=== PATIENT | female | born 1955 | race Hispanic/Latino ===

== ENCOUNTER 2018-12-17 22:05 | Observation (INO) | payer MEDICARE ==
[2018-12-17] MEDS ORDERED: Nitroglycerin 2% Ointment 1 INCH/1 GM Packet ONE (22:47)
[2018-12-17 23:58] LABS: Troponin I 0.015 ng/mL (< 0.028)
[2018-12-18] MEDS ORDERED: Bisacodyl 5 MG TAB PO PRN (00:05)
[2018-12-18] MEDS ORDERED: HumaLOG 300 UNITS/3 ML VIAL SC PRN (00:05)
[2018-12-18] MEDS ORDERED: Dextrose 50% Abboject 50 ML SYRINGE SLOW IVP PRN (00:05)
[2018-12-18] MEDS ORDERED: Dextrose 5% in Water 1,000 ML IV PRN (00:05)
[2018-12-18] MEDS ORDERED: Senokot S 8.6-50 MG TAB PO PRN (00:05)
[2018-12-18 01:19] VITALS: BMI 25.4
[2018-12-18 02:29] LABS: #Basophils 0.1 thou/uL (0.0-0.2); #Eosinphils 0.1 thou/uL (0.0-0.7); #Lymphocytes 2.9 thou/uL (1.20-3.40); #Monocytes 0.9 thou/uL (0.11-0.59); #Neutrophils 4.9 thou/uL (1.40-6.50); %Basophils 0.8 % (0.0-1.0); %Eosinophils 1.2 % (0.0-10.0); %Lymphocytes 32.6 % (21.0-51.0); %Monocytes 9.6 % (0.0-10.0); %Neutrophils 55.7 % (42.0-75.0); Hemoglobin 10.6 g/dL (12.0-16.0); Mean Corpuscular HGB CONC 34.2 g/dL (32.0-36.0); Mean Corpuscular Hemoglobin 30.1 pg (27.0-31.0); Mean Platelet Volume 7.5 fL (7.4-10.4); Platelet Count 242 thou/uL (130-400); RBC Distribution Width 12.4 % (11.5-14.5); Red Blood Cell (RBC) Count 3.52 mill/uL (4.20-5.40); White Blood Cell (WBC) Count 8.9 thou/uL (4.8-10.8)
[2018-12-18 02:50] LABS: Anion Gap 11 mmol/L (10-20); BUN (Urea Nitrogen) 26 mg/dL (9.8-20.1); Calc. Creatinine Clearance 36 mL/min (70-130); Calcium 9.8 mg/dL (7.8-10.44); Carbon Dioxide 21 mmol/L (23-31); Chloride 108 mmol/L (98-107); Estimated GFR-MDRD 30; Glucose 123 mg/dL (80-115); Potassium 4.1 mmol/L (3.5-5.1); Sodium 136 mmol/L (136-145)
[2018-12-18 02:51] LABS: Troponin I Less than 0.010 ng/mL (< 0.028)
[2018-12-18] MEDS: Acetaminophen 325 MG TAB PO PRN ×2 (05:13→11:51)
--- NOTE | 2018-12-18 08:07 | RAD ---
XR Shoulder Rt 3 View STANDARD: 12/18/2018 12:04 AM CLINICAL INDICATION: Pain COMPARISON: None. FINDINGS: Fracture:No fracture. Arthropathy:Moderate arthropathy. Incidental findings:None of significance. IMPRESSION: 1. No acute osseous abnormality. 2. Moderate osteoarthritis.
--- NOTE | 2018-12-18 08:46 | HP ---
CHIEF COMPLAINT: Right shoulder pain/chest pain. HISTORY OF PRESENT ILLNESS: The patient is a 63-year-old female with past medical history of CAD status post 2 stents put in 2017. She comes in with complaints of right shoulder pain/chest pain. The patient stated that she was sitting, watching TV today when she started having significant amount of right shoulder pain, which was sharp in nature and radiated to her midsternal area. The patient denies any shortness of breath, any nausea, vomiting, or diaphoresis. The patient stated that she tried different medications to relieve her chest pain, which did not improve, so she came into the ER for further evaluation. The patient further states that she was in rehab about a week ago at [facility] for rehabilitation since she had suffered a fall, which appeared to be most likely mechanical and was in rehab. However, the patient stated that she was in wheelchair bound and they did not really walk her or ambulate her. She also states that she has been using a walker at home and felt that she was putting more pressure on her upper extremity, which she has normally not used to. The patient has a history of an asoyg-osi-cbdx amputation of her right leg for infection and she does have a prosthesis. She also, on the left leg, had a work injury and has had extensive surgery on that leg, so she at baseline has very limited mobility and normally at her baseline, she normally walks with a cane. However, since her fall, which was about a few weeks ago, she has been using a walker. The patient currently states that she does have pain when she takes a deep breath and her pain is sharp in nature. Her last pain that she had when she had her stents, she did not have any pain, she did have shortness of breath. PAST MEDICAL HISTORY: She has had a history of CAD. In 2017, she had 2 stents placed in. She also has a history of diabetes, hyperlipidemia, and hypertension. PAST SURGICAL HISTORY: She has had a left shoulder surgery, skin graft to her left lower extremity and her left wrist. She has had an pobol-phk-hugn right leg amputation. She has also had 2 cardiac stents. SOCIAL HISTORY: She denies any alcohol use, drug use, or smoking history. She lives at home alone. She is a full code. REVIEW OF SYSTEMS: All negative except for the ones mentioned above in the HPI. ALLERGIES: SHE IS ALLERGIC TO CIPRO. MEDICATION: She does not recall her medication list. However, she is currently on NovoLog and Levemir. PHYSICAL EXAMINATION: VITAL SIGNS: Temperature of 98.8, pulse of 72, 16, 98% on room air, pain of 6 to her right shoulder, 164/80. GENERAL: She is awake, alert, and oriented x3. She does not appear in distress. HEENT: Normocephalic, atraumatic. No lymphadenopathy noted. Pupils are equal and reactive to light. CV: S1 and S2 present. No murmurs, rubs, or gallops. LUNGS: Clear to auscultation. No rhonchi or wheezes noted. ABDOMEN: Soft and nontender. Bowel sounds present x2. NEUROVASCULAR: No focal deficits noted. She does have a stump and a prosthesis on her right leg. The left leg, she does have significant scarring, however, no deficits. She is able to move all 4 extremities. MUSCULAR: Her right shoulder, she does have some pain upon palpation and some pain upon moving of her right shoulder. SKIN: She does have some old scars noted to her left lower extremity, otherwise no open sores were noted. LABORATORY RESULTS: WBCs of 8.9, hemoglobin of 10.6, hematocrit of 31.0, platelets of 242. Her D-dimer was 3.73. Chemistry; sodium of 132, potassium of 4.1, BUN of 26, creatinine of 1.69. Troponin x2 were negative. She also had a chest x-ray and a shoulder x-ray. Chest x-ray indicated no acute abnormalities. She does have an old left humeral fracture. Her shoulder x-rays which were ordered are still pending results. ASSESSMENT AND PLAN: The patient is a very pleasant 63-year-old female who presents to the hospital with complaints of right shoulder pain, radiating to her chest. 1. Atypical chest pain. This could be secondary to possible pulmonary embolism versus cardiac in nature. The patient's troponins x2 were negative. EKG had no significant changes. Her pain is sharp in nature. Her D-dimer was elevated. However, given the fact that she had elevated creatinine and her low clearance, she needed a V/Q scan and was unable to get a CTA. The patient is currently on a renal-based dose Lovenox and she will get a V/Q scan this morning. The patient, according to her , immobile and has been wheelchair bound for the past 1 week due to her fall that she had and also continues to have limited mobility due to her generalized weakness, which could predispose her to a blood clot. 2. Diabetes. We will put the patient on sliding scale insulin and continue her home medications. 3. Chronic kidney disease, unknown patient's baseline. She has really never been here before. She does not recall having any kidney issues. We will continue to monitor. 4. Mild anemia, appears to be normocytic. We will continue to monitor. 5. Deep vein thrombosis prophylaxis. The patient is already on Lovenox. Of note, may consider getting a stress test if needed. However, I will like to rule out a pulmonary embolism by doing a V/Q scan first before I stress this lady. Her mechanical drafter is in [place]. She does not recall any recent stress tests. All her workup was done about 2 years ago. Job ID: [id number]
[2018-12-18] MEDS ORDERED: Enoxaparin Sodium 80 MG/0.8 ML SYRINGE SC SCH (09:00)
[2018-12-18] MEDS ORDERED: Enoxaparin Sodium 40 MG/0.4 ML SYRINGE SC SCH (09:00)
[2018-12-18 11:55] VITALS: BP 156/72; TEMP 97.9
--- NOTE | 2018-12-18 12:56 | NM ---
VQ SCAN: HISTORY: Chest pain. TECHNIQUE: Ventilation perfusion scan performed using 14.4 mCi Xenon-133 by inhalation for the ventilation study followed by the intravenous administration of 5.8 mCi technetium-99m MAA for the perfusion scan. FINDINGS: Correlation is made with chest radiograph from the previous day. There is homogeneous tracer distribution in the lungs on ventilation perfusion scans without defects. Washout phase of the ventilation scan was normal. IMPRESSION: Normal exam. POS: TPC
== END 2018-12-18 14:46 | disposition home or self-care (01) ==
LOC: ERS 22:05 → 2SW 12-18 00:19
PROVIDERS: ADMIT Internal Medicine; ATTEND Internal Medicine
DX: R07.89 Other chest pain (principal); I16.0 Hypertensive urgency; I12.9 Hypertensive chronic kidney disease with stage 1 through stage 4 chronic kidney disease, or unspecified chronic kidney disease; E11.22 Type 2 diabetes mellitus with diabetic chronic kidney disease; N18.9 Chronic kidney disease, unspecified; D63.1 Anemia in chronic kidney disease; M19.011 Primary osteoarthritis, right shoulder; I25.10 Atherosclerotic heart disease of native coronary artery without angina pectoris; E78.5 Hyperlipidemia, unspecified; Z95.5 Presence of coronary angioplasty implant and graft; Z89.611 Acquired absence of right leg above knee; Z88.1 Allergy status to other antibiotic agents; Z79.4 Long term (current) use of insulin; Z79.1 Long term (current) use of non-steroidal anti-inflammatories (NSAID); Z79.899 Other long term (current) drug therapy
CPT/HCPCS: 73030; 78582; 80048; 82962; 84484 ×2; 85025; 96372; 97139 ×2; 99285; A9540; A9558; G0378; 36415; 36416; J1650

== ENCOUNTER 2019-08-27 08:56 | Inpatient (IN) | payer MEDICARE ==
--- NOTE | 2019-08-27 09:43 | RAD ---
CHEST 1 VIEW: Date: 08/27/2019 HISTORY: Dyspnea. COMPARISON: 12/17/2018. FINDINGS: Bilateral vascular congestion with some interstitial and alveolar opacity changes in the bases and sm all bilateral pleural effusions. No significant cardiomegaly. No confluent lobar pneumonia. IMPRESSION: Evidence for bilateral vascular congestion and probably some bibasilar interstitial and alveolar opac ity changes with bilateral small pleural effusions. These findings are new from the prior study. POS: TPC
[2019-08-27 10:03] LABS: ALT (SGPT) 10 U/L (8-55); AST (SGOT) 14 U/L (5-34); Alkaline Phosphatase 129 U/L (40-110); BUN (Urea Nitrogen) 70 mg/dL (9.8-20.1); Bilirubin, Total 0.3 mg/dL (0.2-1.2); Calc. Creatinine Clearance 0 mL/min (70-130); Calcium 7.4 mg/dL (7.8-10.44); Carbon Dioxide 14 mmol/L (23-31); Chloride 110 mmol/L (98-107); Estimated GFR-MDRD 5; Glucose 114 mg/dL (80-115); Potassium 5.2 mmol/L (3.5-5.1); Sodium 137 mmol/L (136-145)
[2019-08-27 10:07] LABS: #Basophils 0.1 thou/uL (0.0-0.2); #Eosinphils 0.1 thou/uL (0.0-0.7); #Lymphocytes 1.4 thou/uL (1.20-3.40); #Monocytes 0.7 thou/uL (0.11-0.59); %Basophils 0.7 % (0.0-1.0); %Eosinophils 0.7 % (0.0-10.0); %Lymphocytes 17.2 % (21.0-51.0); %Monocytes 8.8 % (0.0-10.0); %Neutrophils 72.7 % (42.0-75.0); Hemoglobin 9.1 g/dL (12.0-16.0); Mean Corpuscular HGB CONC 33.4 g/dL (32.0-36.0); Mean Corpuscular Hemoglobin 29.9 pg (27.0-31.0); Mean Corpuscular Volume 89.5 fL (78.0-98.0); Mean Platelet Volume 7.6 fL (7.4-10.4); Platelet Count 276 thou/uL (130-400); RBC Distribution Width 13.5 % (11.5-14.5); Red Blood Cell (RBC) Count 3.06 mill/uL (4.20-5.40); White Blood Cell (WBC) Count 8.2 thou/uL (4.8-10.8)
[2019-08-27 10:26] LABS: CKMB 5.4 ng/mL (0-6.6)
[2019-08-27 12:18] LABS: Anion Gap 18 mmol/L (10-20)
[2019-08-27] MEDS ORDERED: Furosemide 40 MG/4 ML VIAL ONE (12:22)
[2019-08-27] MEDS ORDERED: Calcium Carbonate 500 MG ChewTAB PO PRN (12:58)
[2019-08-27] MEDS ORDERED: Dextrose 50% Abboject 50 ML SYRINGE SLOW IVP PRN (13:01)
[2019-08-27] MEDS ORDERED: Dextrose 5% in Water 1,000 ML IV PRN (13:01)
[2019-08-27] MEDS ORDERED: Insulin Regular 300 UNITS/3 ML VIAL SC PRN ×2 (13:01)
--- NOTE | 2019-08-27 14:24 | ULT ---
BILATERAL RENAL ULTRASOUND: Date: 08/27/2019 HISTORY: Acute kidney insufficiency. FINDINGS: Right kidney measures 10.0 cm in length. Left kidney measures 11.0 cm in length. Both kidneys show increased cortical echogenicity consistent with chronic renal disease. No hydroneph rosis or mass lesion identified. The urinary bladder is distended and unremarkable. IMPRESSION: Both kidneys show increased cortical echogenicity consistent with chronic renal disease. No hydroneph rosis. POS: C
[2019-08-27 14:48] LABS: Troponin I 0.043 ng/mL (< 0.028)
[2019-08-27] MEDS ORDERED: Sodium Bicarbonate Tab 325 MG TAB PO SCH (15:30)
--- NOTE | 2019-08-27 18:20 | HP ---
PRIMARY CARE: Dr. Yolanda Stauffer. PRIMARY COATINGS INSPECTOR: Out of [facility]. CHIEF COMPLAINT: Shortness of breath. HISTORY OF PRESENT ILLNESS: The patient is a 64-year-old female with congestive heart failure, coronary artery disease, diabetes mellitus type 2, hypertension, and hyperlipidemia, presented to the emergency room with shortness of breath. Over the last one week, the patient has gradual worsening of shortness of breath that progressively got worse over the last 24 hours. It started with a flu-like symptom last week. She tried xazl-mhd-coisxis medications including loratadine without much relief. She was evaluated by a PCP and was started on oral clindamycin along with ipratropium nasal spray. Her flu symptoms gradually improved. However, her shortness of breath progressively got worse. She gets short of breath on minimal exertion. She also had some orthopnea. She also notices leg swelling. No paroxysmal nocturnal dyspnea reported. She had cough, which was productive of thick whitish phlegm. No fever, chills, chest pain, palpitations, or syncope reported. She denies any sick contacts. In the emergency room, her workup was consistent with acute kidney injury with creatinine of 8.8. Creatinine last year was 1.69. She denies any recent blood work. PAST MEDICAL HISTORY: 1. Coronary artery disease, status post stent placement. 2. Hypertension. 3. Diabetes mellitus type 2. 4. CKD stage 4. PAST SURGICAL HISTORY: 1. Left shoulder surgery. 2. Skin graft to left lower extremity and left wrist. 3. 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 ALLERGIES: THE PATIENT IS ALLERGIC TO CIPROFLOXACIN. CURRENT HOME MEDICATIONS: The patient is unable to recall any of her home medications. SOCIAL HISTORY: The patient currently lives at home alone. She is full code, makes her own decision with the help of her daughter. No smoking, alcohol, or drug use. FAMILY HISTORY: Negative for premature coronary artery disease. REVIEW OF SYSTEMS: All other review of systems was reviewed and was found negative. PHYSICAL EXAMINATION: VITAL SIGNS: Showed temperature 98, respiration of 19, pulse rate of 99, blood pressure of 182/87, O2 saturation of 99% on room air. GENERAL: A 64-year-old female, in mild respiratory distress, able to complete short sentences. HEENT: Head, atraumatic and normocephalic. Sclerae anicteric. Moist mucous membranes. No oral lesion. NECK: Supple. JVD elevated. No carotid bruit. LUNGS: Showed accessory muscle use along with scattered rhonchi with a few rales at bases. No wheezing appreciated. HEART: S1 and S2 present. Regular. No rubs or gallops. No heaves or pulsation. ABDOMEN: Soft, nontender. Bowel sounds present. No rebound or guarding. EXTREMITIES: There is 1+ edema in the left flank. The patient has a bony amputation in the right lower extremity. SKIN: Warm and dry. LYMPH NODES: No palpable lymph nodes in the neck. PERIPHERAL VASCULAR: Radial pulses palpable bilaterally. MUSCULOSKELETAL: No joint swelling or tenderness. PSYCHIATRY: Alert, awake, and oriented x3. LABORATORY FINDINGS: Creatinine 8.8 with BUN 70, potassium 5.2, chloride 110, bicarb 14. CBC showed WBC 8.2 with hemoglobin 9.1. IMAGING STUDIES: Chest x-ray by my review showed pulmonary vascular congestion. EKG by my review showed sinus rhythm with incomplete right bundle-branch block and left axis deviation. There were nonspecific ST-T wave changes. IMPRESSION: 1. Acute on chronic congestive heart failure exacerbation, suspected systolic. 2. Acute kidney injury on chronic kidney disease, stage 4. 3. Hyperkalemia. 4. Metabolic acidosis. 5. Type 2 myocardial infarction. 6. Anemia, suspected due to renal insufficiency. 7. Diabetes mellitus, type 2. 8. Hypertension. 9. Hyperlipidemia. PLAN: 1. The patient's renal function worsening is probably secondary to cardiorenal syndrome. It is unclear what medications the patient takes. Nephrology will be consulted. She has been started on IV diuretics per Nephrology. We will start her on sodium bicarbonate for correction of metabolic acidosis. We will add fluid restriction, start low-dose aspirin. Verify home medications. P.r.n. nebulizer treatment. Cardiac Rehab consultation. 2. Recheck labs in a.m. Urinalysis is pending at this time. We will check iron profile due to significant anemia. 3. The patient understands the above plan of care. Job ID: [id number]
[2019-08-27] MEDS ORDERED: Furosemide 40 MG/4 ML VIAL SLOW IVP SCH ×2 (18:45→21:00)
[2019-08-27] MEDS: Senokot S 8.6-50 MG TAB PO SCH (20:28)
[2019-08-27] MEDS: Sodium Bicarbonate Tab 325 MG TAB PO SCH (20:29)
[2019-08-27] MEDS: Famotidine 20 MG TAB PO SCH (20:29)
[2019-08-27] MEDS: Heparin 5,000 UNITS/ML VIAL SC SCH (20:29)
[2019-08-27] MEDS ORDERED: Morphine 2 MG/ML SYRINGE SLOW IVP SCH (21:00)
[2019-08-27] MEDS: Cepastat Lozenges 1 LOZ PO PRN ×2 (21:13→23:39)
[2019-08-27] MEDS: Aspirin 81 mg Enteric Coated Tablet PO SCH (21:13)
[2019-08-27] MEDS ORDERED: Sodium Bicarb 50 MEQ/50 ML VIAL IVP SCH (22:00)
[2019-08-27 22:22] LABS: Actual Bicarbonate (HCO3a) 11.9 mEq/L (22-28); Base Excess (BEa) -11.1 mEq/L (-2.0 to +3.0); Calcium, Ionized 1.08 mmol/L (1.12-1.30); Carboxyhemoglobin (COHb) 0.9 gm% (0.0-3.0); Hemoglobin (Hb) 13.8 g/dL (12.0-16.0); O2 Tension (PaO2) 91.1 mmHg (> 80.0); Potassium - ABG Lab 4.96 mmol/L (3.70-5.30); pH, Arterial 7.37 (7.35-7.45)
[2019-08-27 22:23] LABS: Puncture Site RRA
[2019-08-27] MEDS: Sodium Bicarbonate 150 MEQ in Dextrose 5% in Water 1,000 ML IV SCH (22:32)
[2019-08-28 05:11] LABS: #Lymphocytes 1.1 thou/uL (1.20-3.40); #Monocytes 0.5 thou/uL (0.11-0.59); #Neutrophils 4.4 thou/uL (1.40-6.50); %Basophils 0.6 % (0.0-1.0); %Eosinophils 0.8 % (0.0-10.0); %Lymphocytes 18.3 % (21.0-51.0); %Monocytes 7.6 % (0.0-10.0); %Neutrophils 72.7 % (42.0-75.0); Hemoglobin 9.6 g/dL (12.0-16.0); Mean Corpuscular HGB CONC 34.5 g/dL (32.0-36.0); Mean Corpuscular Hemoglobin 30.8 pg (27.0-31.0); Mean Corpuscular Volume 89.1 fL (78.0-98.0); Mean Platelet Volume 7.6 fL (7.4-10.4); Platelet Count 210 thou/uL (130-400); RBC Distribution Width 13.3 % (11.5-14.5); Red Blood Cell (RBC) Count 3.13 mill/uL (4.20-5.40); White Blood Cell (WBC) Count 6.1 thou/uL (4.8-10.8)
[2019-08-28 05:11] LABS: Bacteria/HPF None Seen HPF (None Seen); Bilirubin Negative (Negative); Blood, Urine Trace (Negative); Clarity Clear (Clear); Glucose, Urine (Dipstick) 300 mg/dL (Negative); Leukocyte Negative Leu/uL (Negative); Nitrite Negative (Negative); Protein, Urine (Dipstick) 600 mg/dL (Neg-Trace); RBC/HPF 0-3 HPF (0-3); Urobilinogen Normal mg/dL (Less than 2); WBC/HPF 0-3 HPF (0-3)
[2019-08-28 05:15] LABS: INR-International Normal Ratio 1.1; PTT 34.4 SEC (22.9-36.1); Prothrombin Time 14.6 SEC (12.0-14.7)
[2019-08-28 05:29] LABS: Iron 19 ug/dL (50-170); Iron Binding Capacity, Total 174 mcg/dL (265-497)
[2019-08-28] MEDS: Cepastat Lozenges 1 LOZ PO PRN ×2 (05:29→08:37)
[2019-08-28] MEDS: Furosemide 40 MG/4 ML VIAL SLOW IVP SCH ×2 (05:29→13:16)
[2019-08-28 05:30] LABS: ALT (SGPT) 8 U/L (8-55); AST (SGOT) 11 U/L (5-34); Albumin 2.7 g/dL (3.4-4.8); Alkaline Phosphatase 96 U/L (40-110); Anion Gap 19 mmol/L (10-20); BUN (Urea Nitrogen) 72 mg/dL (9.8-20.1); Bilirubin, Total 0.3 mg/dL (0.2-1.2); Calc. Creatinine Clearance 7 mL/min (70-130); Calcium 7.7 mg/dL (7.8-10.44); Carbon Dioxide 15 mmol/L (23-31); Chloride 105 mmol/L (98-107); Estimated GFR-MDRD 4; Globulin 3.3 g/dL (2.4-3.5); Glucose 192 mg/dL (80-115); Potassium 4.6 mmol/L (3.5-5.1); Sodium 134 mmol/L (136-145)
[2019-08-28 05:31] LABS: Iron 19 ug/dL (50-170); Iron Binding Capacity, Total 178 mcg/dL (265-497); Phosphorus 8.7 mg/dL (2.3-4.7)
[2019-08-28] MEDS: Sodium Bicarbonate Tab 325 MG TAB PO SCH (08:36)
[2019-08-28] MEDS: Loratadine 10 MG TAB PO SCH (08:36)
[2019-08-28] MEDS: Senokot S 8.6-50 MG TAB PO SCH ×2 (08:36→20:11)
[2019-08-28] MEDS: Heparin 5,000 UNITS/ML VIAL SC SCH ×2 (08:36→20:11)
[2019-08-28] MEDS ORDERED: Aspirin 81 mg Enteric Coated Tablet PO SCH (09:00)
[2019-08-28] MEDS ORDERED: Heparin 10,000 UNITS/ 10 ML VIAL ONE (09:55)
--- NOTE | 2019-08-28 10:08 | PDOC.HOSPP ---
- Subjective Encounter Date: 08/28/19 Encounter Time: 10:05 Subjective: Patient seen and examined for MAY/CHF. Nausea. SOB improving. No new complaints. No overnight events. Coughing up clear phlegm. Some throat pain. Slept well last night. - Objective Vital Signs & Weight: Vital Signs (12 hours) Temp Pulse Resp BP BP Pulse Ox 08/28/19 08:33 99.8 F H 106 H 22 H 160/75 H 99 08/28/19 06:50 101 H 20 100 08/28/19 03:39 98.7 F 110 H 22 H 150/77 H 97 08/27/19 23:24 98.5 F 113 H 16 160/74 H 97 08/27/19 22:50 109 H 22 H Weight Weight 166 lb 9.6 oz I&O: 08/27/19 08/28/19 08/29/19 06:59 06:59 06:59 Intake Total 905 Output Total 750 Balance 155 Result Diagrams: 08/28/19 04:57 08/28/19 04:57 Additional Labs: Accuchecks 08/28/19 08/27/19 08/27/19 05:21 20:12 17:21 POC Glucose 231 H 143 H 103 Radiology Reviewed by me: Yes (CXR - pulm congestion) EKG Reviewed by me: Yes (Tele SR) Hospitalist ROS - Review of Systems Constitutional: reports: weakness. denies: fever, chills, sweats, malaise, other Gastrointestinal: reports: nausea. denies: vomiting, abdominal pain, diarrhea, constipation, melena, hematochezia, other - Medication Medications: Active Medications Generic Name Dose Route Start Last Admin Trade Name Freq PRN Reason Stop Dose Admin Albuterol/Ipratropium 3 ml 08/27/19 18:30 08/28/19 06:50 Duoneb NEB 3 ml [id number] ROLAND Administration Aspirin 81 mg 08/27/19 21:00 08/27/19 21:13 Ecotrin PO 81 mg HS ROLAND Administration Famotidine 20 mg 08/27/19 21:00 08/27/19 20:29 Pepcid PO 20 mg QPM ROLAND Administration Furosemide 40 mg 08/28/19 06:00 08/28/19 05:29 Lasix SLOW IVP 40 mg 0600,1400 ROLAND Administration Heparin Sodium (Porcine) 5,000 units 08/27/19 21:00 08/28/19 08:36 Heparin SC 5,000 units BID ROLAND Administration Sodium Bicarbonate 150 meq/ 1,150 mls @ 100 mls/hr 08/27/19 22:00 08/27/19 22 :32 Dextrose/Water IV 1,150 mls .[id number] ROLAND Administration Loratadine 10 mg 08/28/19 09:00 08/28/19 08:36 Claritin PO 10 mg DAILY ROLAND Administration Senna/Docusate Sodium 1 tab 08/27/19 21:00 08/28/19 08:36 Senokot S PO 1 tab BID ROLAND Administration Sodium Bicarbonate 650 mg 08/27/19 21:00 08/28/19 08:36 Bicarbonate, Sodium PO 650 mg TID ROLAND Administration Throat Lozenges 1 iván 08/27/19 20:43 08/28/19 08:37 Cepastat Lozenges PO 1 iván Q2H PRN Administration Sore Throat - Exam General Appearance: ill appearing Neck: supple, no JVD Heart: RRR, no gallops, no rubs, normal peripheral pulses Respiratory: no wheezes, normal chest expansion, rales (few), rhonchi Gastrointestinal: soft, non-tender, non-distended, normal bowel sounds Extremities: no cyanosis, 1+ LE edema Neurological: no new deficit Psychiatric: normal affect, A&O x 3 Hosp A/P - Plan DVT proph w/heparin 1. Acute on chronic congestive heart failure exacerbation, suspected systolic. 2. Acute kidney injury on chronic kidney disease, stage 4. 3. Hyperkalemia - improving 4. Metabolic acidosis. 5. Type 2 myocardial infarction. 6. Anemia, suspected due to renal insufficiency. 7. Diabetes mellitus, type 2. 8. Hypertension. 9. Hyperlipidemia. PLAN: Started on bicarb drip per Nephro Will dc PO Bicarb Will add low dose Coreg PRN meds for HTN Add Lantus Change sliding scale to moderate CXR today to r/o Pneumonia Start empiric Atbx - Ceftriaxone/Doxycycline AM labs
[2019-08-28] MEDS ORDERED: hydrALAZINE 20 MG/ML VIAL SLOW IVP PRN (10:15)
[2019-08-28] MEDS ORDERED: cloNIDine 0.1 MG TAB PO PRN (10:15)
[2019-08-28] MEDS ORDERED: Ondansetron PF 4 MG/2 ML Vial IVP PRN (10:17)
[2019-08-28] MEDS ORDERED: Cepastat Lozenges 1 LOZ PO PRN (10:25)
[2019-08-28] MEDS ORDERED: Carvedilol 6.25 MG TAB PO SCH (10:30)
[2019-08-28] MEDS ORDERED: Insulin Glargine 15 UNITS in Pre-Filled Syringe 1 EACH SC SCH (10:30)
[2019-08-28] MEDS ORDERED: Doxycycline 100 MG CAP PO SCH (10:30)
[2019-08-28] MEDS: Insulin Regular 300 UNITS/3 ML VIAL SC PRN (11:07)
[2019-08-28] MEDS: cefTRIAXone\\ROCEPHIN 1 GM in Sodium Chloride 0.9% 100 ML IVPB SCH (11:08)
[2019-08-28] MEDS: Ondansetron ODT 4 MG TAB PO PRN (11:11)
[2019-08-28] MEDS: Acetaminophen 325 MG TAB PO PRN ×2 (11:11→19:00)
--- NOTE | 2019-08-28 11:36 | RAD ---
XR Chest Pa Lat STANDARD HISTORY: Shortness of breath. COMPARISON: 08/27/2019 exam. FINDINGS: Heart size and mediastinum are within normal limits. Blunting of both costophrenic angles a re noted and there are bibasilar lung changes seen. Overall findings appear fairly similar to the prior exam. IMPRESSION: Suggestion of bilateral small pleural effusions and bibasilar lung changes probably on th e basis of atelectasis.
[2019-08-28] MEDS: Sodium Bicarbonate 150 MEQ in Dextrose 5% in Water 1,000 ML IV SCH (11:55)
[2019-08-28 12:58] LABS: Creatinine, Urine 34.89 mg/dL (47-110)
--- NOTE | 2019-08-28 13:31 | PRG ---
DATE OF SERVICE: 08/28/2019 SUBJECTIVE: Patient was seen and examined at bedside and overnight events noted. Patient denies any shortness of breath or chest pain or palpitation. No history of nausea or vomiting or diarrhea or fever or chills or cramps. OBJECTIVE: GENERAL: This is a well-built female, in no acute distress. VITAL SIGNS: Temperature 99, pulse 107, respiratory rate 18, blood pressure 132/69. HEENT: Atraumatic, normocephalic. Oral mucosa is moist NECK: Supple. CARDIOVASCULAR: S1, S2 heard. Rate and rhythm regular. RESPIRATORY: Clear to auscultation. GASTROINTESTINAL: Abdomen is soft. MUSCULOSKELETAL: No tenderness. No edema. DERMATOLOGIC: No skin rash. NEUROLOGIC: Alert and awake and oriented X3. No focal neurologic deficits. Moving all the extremities. PSYCHIATRIC: Mood and affect normal. LABORATORY DATA: Potassium 4.6, sodium 134, bicarb is 15, BUN is 72, and creatinine is 8.9. ASSESSMENT AND PLAN: 1. Acute kidney injury on chronic kidney disease stage 5 with worsening renal labs. Plan is to start on dialysis. Family is agreeable. 2. Hyponatremia. 3. Acidosis. 4. Vitamin D deficiency. Started on vitamin D. 5. Anemia of chronic disease. 6. Renal ultrasound with chronicity. Avoid nephrotoxins. Plan is to start on dialysis. Appreciate help from Surgery for dialysis access placement. We will follow. Immunological labs are pending. Job ID: [id number]
[2019-08-28 13:58] LABS: HBSAg Index 0.21 S/CO (0-0.99); Hep B Core Total Ab Non-Reactive (NonReactive); Hep B Core Total Index 0.04 S/CO (0-0.79); Hep B Surf AB Non-Reactive (NonReactive); Hep B Surf Ag Non-Reactive S/CO (NonReactive); Hep C IgG Ab Non-Reactive (NonReactive); Hep C Index 0.05 S/CO (0-0.79)
--- NOTE | 2019-08-28 17:16 | OP ---
DATE OF PROCEDURE: 08/28/2019 PREOPERATIVE DIAGNOSIS: Acute renal failure. POSTOPERATIVE DIAGNOSIS: Acute renal failure. PROCEDURE PERFORMED: Placement of right femoral vein Trialysis catheter for hemodialysis. INDICATIONS FOR PROCEDURE: This is a 64-year-old woman, who presented with acute renal failure. I have been asked to place a temporary dialysis access to facilitate hemodialysis. DESCRIPTION OF PROCEDURE: Informed consent was obtained from the patient, who was placed in supine position. The right groin was sterilely prepped and draped in usual fashion. The right femoral artery was palpated at the groin. The skin was anesthetized with 1% lidocaine medial to the palpated artery. The right femoral vein was then cannulated with an 18-gauge introducer needle returning dark venous blood. Guidewire was advanced through the needle and placed in the right femoral vein without resistance. The needle was withdrawn over the guidewire. A stab incision was made adjacent to the guidewire using 11 scalpel. Dilator was passed over the guidewire dilating the subcutaneous tissues. A triple-lumen Trialysis catheter was then advanced over the guidewire and placed in the right femoral vein without resistance down to the hub. Guidewire was removed. Dark venous blood was aspirated from all 3 ports, which were then individually flushed with saline followed by heparin. Catheter was secured to right groin using 3-0 nylon suture at two points. Sterile dressings were applied. The patient tolerated the procedure without any apparent complication and remains hemodynamically stable following completion of procedure. Job ID: [id number]
[2019-08-28] MEDS: Carvedilol 6.25 MG TAB PO SCH (18:50)
[2019-08-28] MEDS: Aspirin 81 mg Enteric Coated Tablet PO SCH (20:11)
[2019-08-28] MEDS: Doxycycline 100 MG CAP PO SCH (20:11)
[2019-08-28] MEDS: Famotidine 20 MG TAB PO SCH (20:11)
[2019-08-29] MEDS: Acetaminophen 325 MG TAB PO PRN ×2 (02:21→11:45)
[2019-08-29] MEDS: Sodium Bicarbonate 150 MEQ in Dextrose 5% in Water 1,000 ML IV SCH ×2 (04:00→10:19)
[2019-08-29 05:38] LABS: Albumin 2.4 g/dL (3.4-4.8); Anion Gap 13 mmol/L (10-20); BUN (Urea Nitrogen) 45 mg/dL (9.8-20.1); BUN/Creatinine Ratio 6.92; Calc. Creatinine Clearance 10 mL/min (70-130); Calcium 7.2 mg/dL (7.8-10.44); Carbon Dioxide 27 mmol/L (23-31); Chloride 100 mmol/L (98-107); Estimated GFR-MDRD 6; Glucose 227 mg/dL (80-115); Phosphorus 6.1 mg/dL (2.3-4.7); Potassium 4.2 mmol/L (3.5-5.1); Sodium 136 mmol/L (136-145)
[2019-08-29] MEDS: Furosemide 40 MG/4 ML VIAL SLOW IVP SCH (06:25)
[2019-08-29] MEDS ORDERED: Insulin Glargine 15 UNITS in Pre-Filled Syringe 1 EACH SC SCH (09:00)
[2019-08-29] MEDS: Heparin 5,000 UNITS/ML VIAL SC SCH ×2 (09:23→21:20)
[2019-08-29] MEDS: Insulin Regular 300 UNITS/3 ML VIAL SC PRN ×2 (09:24→11:42)
[2019-08-29] MEDS: Saccharomyces boulardii 250 MG CAP PO SCH (09:24)
[2019-08-29] MEDS: Doxycycline 100 MG CAP PO SCH ×2 (09:24→21:20)
[2019-08-29] MEDS: Carvedilol 6.25 MG TAB PO SCH ×2 (09:25→22:51)
[2019-08-29] MEDS: Senokot S 8.6-50 MG TAB PO SCH ×2 (09:25→21:20)
[2019-08-29] MEDS: Loratadine 10 MG TAB PO SCH (09:25)
[2019-08-29] MEDS ORDERED: Heparin 10,000 UNITS/ 10 ML VIAL ONE (09:52)
[2019-08-29] MEDS: cefTRIAXone\\ROCEPHIN 1 GM in Sodium Chloride 0.9% 100 ML IVPB SCH (10:19)
[2019-08-29] MEDS ORDERED: traMADol HCl 50 MG TAB PO PRN (13:00)
[2019-08-29] MEDS ORDERED: EPOETIN ALFA-EPBX (ESRD) 10,000 UNIT/ML VIAL SC SCH (13:15)
[2019-08-29] MEDS ORDERED: Tuberculin PPD 0.1 ML VIAL I-DERMAL SCH (13:15)
[2019-08-29] MEDS: Ondansetron ODT 4 MG TAB PO PRN (13:27)
--- NOTE | 2019-08-29 14:17 | PRG ---
DATE OF SERVICE: 08/29/2019 SUBJECTIVE: Patient was seen and examined at bedside and overnight events noted. Patient denies any shortness of breath or chest pain or palpitation. No history of nausea or vomiting or diarrhea or fever or chills or cramps. OBJECTIVE: GENERAL: This is a well-built female, in no apparent distress. VITAL SIGNS: Temperature 99.5. Heart rate 85. Respiratory rate 18. Blood pressure 123/58. HEENT: Atraumatic, normocephalic. Oral mucosa is moist NECK: Supple. CARDIOVASCULAR: S1, S2 heard. Rate and rhythm regular. RESPIRATORY: Clear to auscultation. GASTROINTESTINAL: Abdomen is soft. MUSCULOSKELETAL: No tenderness. No edema. DERMATOLOGIC: No skin rash. NEUROLOGIC: Alert and awake and oriented X3. No focal neurologic deficits. Moving all the extremities. PSYCHIATRIC: Mood and affect normal. LABORATORY DATA: Potassium 4.2, BUN is 45, creatinine is 6.5. ASSESSMENT AND PLAN: 1. End-stage renal disease. The patient started on dialysis yesterday. Pressure from Surgery for access placement. May need long-term access placement. We will consult Surgery and need a fistula placement. 2. Severe proteinuria history heavy proteinuria is most likely secondary to diabetes nephropathy. 3. Diabetic nephropathy. 4. Acidosis. 5. Vitamin D deficiency. Continue vitamin D. 6. Anemia of chronic disease. We will continue on Epogen. PLAN: To have dialysis today, then consult Surgery. Case Management consult for outpatient dialysis. We will follow. Job ID: [id number]
--- NOTE | 2019-08-29 15:55 | ULT ---
BILATERAL UPPER EXTREMITY VEIN MAPPING: HISTORY: End stage renal disease. Evaluation for dialysis access. FINDINGS: RIGHT CEPHALIC BASILIC PROXIMAL HUMERUS 4 mm 3.4 mm MID HUMERUS 4.8 mm 2.8 mm DISTAL HUMERUS Partial thrombus 3.5 mm ELBOW 7.8 mm 3.6 mm PROXIMAL FOREARM 3.5 mm 3.5 mm MID FOREARM 3.5 mm 1.1 mm DISTAL FOREARM 3.4 mm 0.7 mm LEFT CEPHALIC BASILIC PROXIMAL HUMERUS 4.2 mm 4.2 mm MID HUMERUS 4.7 mm 3.7 mm DISTAL HUMERUS 4.2 mm 3.5 mm ELBOW 4.8 mm 1.1 mm PROXIMAL FOREARM 1.8 mm 1.1 mm MID FOREARM 2.1 mm 1.0 mm DISTAL FOREARM Not visualized Not visualized RIGHT BRACHIAL ARTERY: 2.6 mm RIGHT RADIAL ARTERY: 1.5 mm RIGHT ULNAR ARTERY: 2.2 mm LEFT BRACHIAL ARTERY: 3.6 mm LEFT RADIAL ARTERY: 2.2 mm LEFT ULNAR ARTERY: 2.5 mm IMPRESSION: Vein mapping as described above. POS: APURVA
[2019-08-29] MEDS ORDERED: Insulin Glargine 10 UNITS in Pre-Filled Syringe 1 EACH SC SCH (21:00)
--- NOTE | 2019-08-29 21:10 | PDOC.HOSPP ---
- Subjective Encounter Date: 08/29/19 Encounter Time: 14:00 Subjective: Patient seen and examined for MAY/CHF. No CP or SOB. Started on dialysis. No other complaints. No overnight events - Objective Vital Signs & Weight: Vital Signs (12 hours) Temp Pulse Resp BP BP Pulse Ox 08/29/19 16:34 98.7 F 87 18 110/53 L 97 08/29/19 12:27 92 12 08/29/19 11:36 99.5 F 85 18 123/58 L 97 Weight Admit Weight 167 lb 5 oz Weight 166 lb 14.4 oz I&O: 08/28/19 08/29/19 08/30/19 06:59 06:59 06:59 Intake Total 905 2550 1495 Output Total 750 1275 500 Balance 155 1275 995 Result Diagrams: 08/28/19 04:57 08/29/19 04:20 Additional Labs: Accuchecks 08/29/19 08/29/19 08/29/19 20:17 16:50 11:00 POC Glucose 82 91 245 H 08/29/19 05:31 POC Glucose 252 H Radiology Reviewed by me: Yes (CXR - no pneumonia) EKG Reviewed by me: Yes (Tele SR) Hospitalist ROS - Review of Systems Cardiovascular: denies: chest pain, palpitations, orthopnea, paroxysmal noc. dyspnea, edema, light headedness, other Gastrointestinal: denies: nausea, vomiting, abdominal pain, diarrhea, constipation, melena, hematochezia, other - Medication Medications: Active Medications Generic Name Dose Route Start Last Admin Trade Name Freq PRN Reason Stop Dose Admin Acetaminophen 650 mg 08/27/19 12:58 08/29/19 11:45 Tylenol PO 650 mg Q4H PRN Administration Headache/Fever/Mild Pain (1-3) Albuterol/Ipratropium 3 ml 08/27/19 18:30 08/29/19 19:29 Duoneb NEB Not Given [id number] ROLAND Aspirin 81 mg 08/27/19 21:00 08/28/19 20:11 Ecotrin PO 81 mg HS ROLAND Administration Doxycycline Hyclate 100 mg 08/28/19 21:00 08/29/19 09:24 Vibramycin PO 100 mg BID ROLAND Administration Epoetin Tong-epbx 10,000 unit 08/29/19 13:15 08/29/19 14:47 Retacrit SC 10,000 unit Q7D ROLAND Administration Famotidine 20 mg 08/27/19 21:00 08/28/19 20:11 Pepcid PO 20 mg QPM ROLAND Administration Heparin Sodium (Porcine) 5,000 units 08/27/19 21:00 08/29/19 09:23 Heparin SC 5,000 units BID ROLAND Administration Insulin Glargine 15 units/ 0.15 mls @ 0 mls/hr 08/29/19 09:00 08/29/19 09:23 Miscellaneous Medication SC 0.15 mls QAM ROLAND Administration Ceftriaxone Sodium 1 gm/ 100 mls @ 200 mls/hr 08/28/19 11:00 08/29/19 10:19 Sodium Chloride IVPB 100 mls 1100 [facility] Administration Insulin Human Regular 0 units 08/28/19 10:17 08/29/19 11:42 Humulin R SC 4 unit .MODERATE SLIDING SC PRN Administration Moderate Correctional Scale Loratadine 10 mg 08/28/19 09:00 08/29/19 09:25 Claritin PO 10 mg DAILY ROLAND Administration Ondansetron HCl 4 mg 08/28/19 10:17 08/29/19 13:27 Zofran Odt PO 4 mg Q6H PRN Administration Nausea/Vomiting Saccharomyces Boulardii 250 mg 08/29/19 09:00 08/29/19 09:24 Florastor PO 250 mg DAILY [facility] Administration Senna/Docusate Sodium 1 tab 08/27/19 21:00 08/29/19 09:25 Senokot S PO 1 tab BID [facility] Administration Tramadol HCl 50 mg 08/29/19 13:00 08/29/19 13:27 Ultram PO 50 mg Q6H PRN Administration Moderate Pain (4-6) - Exam General Appearance: NAD Neck: supple, no JVD Heart: RRR, no gallops Respiratory: no wheezes, rhonchi Gastrointestinal: non-tender, non-distended, normal bowel sounds Extremities: no clubbing Hosp A/P - Plan DVT proph w/heparin, DVT proph w/SCDs 1. Acute on chronic congestive heart failure exacerbation, suspected systolic. 2. Acute kidney injury on chronic kidney disease, stage 4. 3. Hyperkalemia - improving 4. Metabolic acidosis. 5. Type 2 myocardial infarction. 6. Anemia due to renal insufficiency. 7. DM2 with diabetic nephropathy 8. Hypertension. 9. Hyperlipidemia. 10. Vit D def PLAN: Change Coreg to 3.125 BID Change Lantus to 10 units daily Cont sliding scale DC Ceftriaxone AM labs Dialysis per Nephrology Await Echo
[2019-08-29] MEDS: Famotidine 20 MG TAB PO SCH (21:19)
[2019-08-29] MEDS: Aspirin 81 mg Enteric Coated Tablet PO SCH (21:20)
[2019-08-30 04:34] LABS: #Eosinphils 0.1 thou/uL (0.0-0.7); #Lymphocytes 1.6 thou/uL (1.20-3.40); #Monocytes 0.7 thou/uL (0.11-0.59); #Neutrophils 3.7 thou/uL (1.40-6.50); %Basophils 0.8 % (0.0-1.0); %Eosinophils 1.7 % (0.0-10.0); %Lymphocytes 26.1 % (21.0-51.0); %Monocytes 11.3 % (0.0-10.0); %Neutrophils 60.2 % (42.0-75.0); Hemoglobin 6.8 g/dL (12.0-16.0); Mean Corpuscular HGB CONC 33.6 g/dL (32.0-36.0); Mean Corpuscular Hemoglobin 30.5 pg (27.0-31.0); Mean Corpuscular Volume 90.7 fL (78.0-98.0); Mean Platelet Volume 7.7 fL (7.4-10.4); Platelet Count 191 thou/uL (130-400); RBC Distribution Width 13.3 % (11.5-14.5); Red Blood Cell (RBC) Count 2.22 mill/uL (4.20-5.40); White Blood Cell (WBC) Count 6.1 thou/uL (4.8-10.8)
[2019-08-30 04:47] LABS: Albumin 2.3 g/dL (3.4-4.8); Anion Gap 13 mmol/L (10-20); BUN (Urea Nitrogen) 32 mg/dL (9.8-20.1); BUN/Creatinine Ratio 5.92; Calc. Creatinine Clearance 12 mL/min (70-130); Calcium 7.3 mg/dL (7.8-10.44); Carbon Dioxide 27 mmol/L (23-31); Chloride 101 mmol/L (98-107); Estimated GFR-MDRD 8; Glucose 69 mg/dL (80-115); Phosphorus 5.8 mg/dL (2.3-4.7); Sodium 137 mmol/L (136-145)
[2019-08-30] MEDS: Insulin Glargine 10 UNITS in Pre-Filled Syringe 1 EACH SC SCH (09:42)
[2019-08-30] MEDS: Saccharomyces boulardii 250 MG CAP PO SCH (09:43)
[2019-08-30] MEDS: Heparin 5,000 UNITS/ML VIAL SC SCH (09:43)
[2019-08-30] MEDS: Doxycycline 100 MG CAP PO SCH ×2 (09:44→21:08)
[2019-08-30] MEDS: Carvedilol 3.125 MG TAB PO SCH ×2 (09:44→19:14)
[2019-08-30] MEDS: Senokot S 8.6-50 MG TAB PO SCH ×2 (09:44→21:08)
[2019-08-30] MEDS: Loratadine 10 MG TAB PO SCH (09:44)
--- NOTE | 2019-08-30 09:45 | CON ---
DATE OF CONSULTATION: 08/27/2019 CONSULTING PHYSICIAN: Dr. Patel. REASON FOR CONSULTATION: Acute kidney injury. REASON FOR ADMISSION: Shortness of breath. HISTORY OF PRESENT ILLNESS: A 64-year-old female with history of CHF, coronary artery disease, type 2 diabetes, hypertension, hyperlipidemia, came to the hospital with shortness of breath and is being evaluated for shortness of breath. Chest x-ray also showed fluid overload. She is having wheezing also. No history of asthma or COPD. No fever or chills. No nausea or vomiting. PAST MEDICAL HISTORY: Positive for coronary artery disease, hypertension, type 2 diabetes, CKD stage 4. PAST SURGICAL HISTORY: Left shoulder surgery, skin graft, and right above-knee amputation. HOME MEDICATIONS: Reviewed. ALLERGIES: TO CIPROFLOXACIN. SOCIAL HISTORY: No smoking, alcohol, or illicit drugs. FAMILY HISTORY: No history of kidney disease. REVIEW OF SYSTEMS: CONSTITUTIONAL: Negative for weight loss or gain, ability to conduct usual activities. SKIN: Negative for rash, itching. EYES: Negative for double vision, pain. ENT/MOUTH: Negative for nose bleeding, neck stiffness, pain, tenderness. CARDIOVASCULAR: Negative for palpitations, dyspnea on exertion, orthopnea. RESPIRATORY: Negative for shortness of breath, wheezing, cough, hemoptysis, fever or night sweats. GASTROINTESTINAL: Negative for poor appetite, abdominal pain, heartburn, nausea, vomiting, constipation, or diarrhea. GENITOURINARY: Negative for urgency, frequency, dysuria, nocturia. MUSCULOSKELETAL: Negative for pain, swelling. NEUROLOGIC/PSYCHIATRIC: Negative for anxiety, depression. ALLERGY/IMMUNOLOGIC: Negative for skin rash, bleeding tendency. PHYSICAL EXAMINATION: GENERAL: Well built female, in no apparent distress. VITAL SIGNS: Temperature 97.8, pulse 96, respirations rate 18, blood pressure 163/83. HEENT: Atraumatic, normocephalic. Oral mucosa moist. NECK: Supple. CV: S1, S2. Regular rate and rhythm. RESPIRATORY: Clear. GASTROINTESTINAL: Abdomen is soft MUSCULOSKELETAL: 1+ edema. DERMATOLOGIC: No skin rash. NEUROLOGIC: Alert and awake. PSYCHIATRIC: Normal mood and affect. LABORATORY DATA: Hemoglobin is 9.1. Potassium 5.2, BUN is 70, and creatinine is 8.8. ASSESSMENT AND PLAN: 1. Acute kidney injury on chronic kidney disease stage 3, most likely secondary to cardiorenal syndrome. We will monitor. Renal ultrasound with no obstruction reported with increased echogenicity. 2. Hyperkalemia. Limit potassium. 3. Acidosis. We will have diuretics and oral bicarb now. 4. Fluid overload. 5. Hypoalbuminemia. We will check urine studies. 6. Anemia. Rule out any bleed and we will check iron studies. 7. Avoid nephrotoxins. Continue diuretics. We will check renal labs and we will follow. Job ID: [id number]
[2019-08-30] MEDS ORDERED: Heparin 10,000 UNITS/ 10 ML VIAL ONE (09:56)
[2019-08-30 10:09] LABS: Kappa Lambda Light Chain Ratio 1.04 (0.26-1.65); Kappa Light Chains 135.8 mg/L (3.3-19.4); Lambda Light Chain 130.1 mg/L (5.7-26.3)
--- NOTE | 2019-08-30 11:24 | PRG ---
DATE OF SERVICE: 08/30/2019 SUBJECTIVE: This is a 64-year-old female, being seen for end-stage kidney disease. The patient denies any nausea, vomiting, or chest pain. OBJECTIVE: CONSTITUTIONAL: On examination, the patient is awake and alert. VITAL SIGNS: Afebrile. Pulse 85, breathing 16, and blood pressure 126/60. Awake, alert, in no acute distress. GENERAL APPEARANCE AND MENTAL STATUS: Fair. HEAD/NECK: Normocephalic. Atraumatic. EYES: EOMI. No deformity. EARS: Clear. No ulcers. NOSE: Intact. No lesions. MOUTH: Clear. No discharge. THROAT: Clear. No exudate. LUNGS: Clear. No crackles. CARDIAC: S1, S2. No rub. ABDOMEN: Benign. Bowel sounds positive. GENITALIA/RECTUM: Lara absent. BACK/EXTREMITIES: Edema 0+. NEUROLOGICAL: Alert and motor intact. SKIN: LYMPHATICS: LABORATORY DATA: Labs reviewed. ASSESSMENT AND PLAN: 1. ___Stage 6 chronic kidney disease, plan dialysis. 2. Anemia, plan transfusion. 3. Hypertension, stable. 4. Medication based on GFR appropriate. Job ID: [id number] MTDD
[2019-08-30] MEDS: cefTRIAXone\\ROCEPHIN 1 GM in Sodium Chloride 0.9% 100 ML IVPB SCH (14:12)
[2019-08-30] MEDS: Insulin Regular 300 UNITS/3 ML VIAL SC PRN (14:18)
--- NOTE | 2019-08-30 18:13 | PDOC.HOSPP ---
- Subjective Encounter Date: 08/30/19 Encounter Time: 08:30 Subjective: Patient seen and examined for MAY/CHF. No CP or SOB. No new complaints. No overnight events - Objective Vital Signs & Weight: Vital Signs (12 hours) Temp Pulse Pulse Resp BP BP Pulse Ox 08/30/19 17:30 98.8 F 78 16 151/77 H 08/30/19 17:15 98.4 F 81 18 171/86 H 08/30/19 17:14 98.5 F 88 18 146/79 H 08/30/19 16:48 98.5 F 85 18 131/62 08/30/19 16:12 98 F 95 16 132/70 98 08/30/19 12:00 98.9 F 87 18 149/70 H 98 08/30/19 10:56 100 14 08/30/19 08:00 99.4 F 86 19 126/60 98 08/30/19 06:52 90 12 Weight Admit Weight 167 lb 5 oz Weight 159 lb 6.307 oz I&O: 08/29/19 08/30/19 08/31/19 06:59 06:59 06:59 Intake Total 2550 1495 0 Output Total 1275 2850 Balance 1275 -1355 0 Result Diagrams: 08/30/19 04:13 08/30/19 04:13 Additional Labs: Accuchecks 08/30/19 08/30/19 08/29/19 11:04 05:33 20:17 POC Glucose 195 H 134 H 82 EKG Reviewed by me: Yes (Tele SR) Hospitalist ROS - Review of Systems Respiratory: denies: cough, dry, shortness of breath, hemoptysis, SOB with excertion, pleuritic pain, sputum, wheezing, other Cardiovascular: denies: chest pain, palpitations, orthopnea, paroxysmal noc. dyspnea, edema, light headedness, other Gastrointestinal: denies: nausea, vomiting, abdominal pain, diarrhea, constipation, melena, hematochezia, other - Medication Medications: Active Medications Generic Name Dose Route Start Last Admin Trade Name Freq PRN Reason Stop Dose Admin Acetaminophen 650 mg 08/27/19 12:58 08/29/19 11:45 Tylenol PO 650 mg Q4H PRN Administration Headache/Fever/Mild Pain (1-3) Aspirin 81 mg 08/27/19 21:00 08/29/19 21:20 Ecotrin PO 81 mg HS ROLAND Administration Carvedilol 3.125 mg 08/30/19 08:00 08/30/19 09:44 Coreg PO 3.125 mg BID-WM ROLAND Administration Doxycycline Hyclate 100 mg 08/28/19 21:00 08/30/19 09:44 Vibramycin PO 100 mg BID ROL[facility] Administration Epoetin Tong-epbx 10,000 unit 08/29/19 13:15 08/29/19 14:47 Retacrit SC 10,000 unit Q7D [facility]OL[facility] Administration Famotidine 20 mg 08/27/19 21:00 08/29/19 21:19 Pepcid PO 20 mg QPM ROLAND Administration Heparin Sodium (Porcine) 5,000 units 08/27/19 21:00 08/30/19 09:43 Heparin SC 5,000 units BID ROLAND Administration Insulin Glargine 10 units/ 0.1 mls @ 0 mls/hr 08/30/19 09:00 08/30/19 09:42 Miscellaneous Medication SC 0.1 mls QAM ROLAND Administration Insulin Human Regular 0 units 08/28/19 10:17 08/30/19 14:18 Humulin R SC 2 unit .MODERATE SLIDING SC PRN Administration Moderate Correctional Scale Ondansetron HCl 4 mg 08/28/19 10:17 08/29/19 13:27 Zofran Odt PO 4 mg Q6H PRN Administration Nausea/Vomiting Saccharomyces Boulardii 250 mg 08/29/19 09:00 08/30/19 09:43 Florastor PO 250 mg DAILY [facility] Administration Senna/Docusate Sodium 1 tab 08/27/19 21:00 08/30/19 09:44 Senokot S PO 1 tab BID ROLAND Administration Sodium Chloride 10 ml 08/27/19 12:58 08/30/19 14:14 Flush - Normal Saline IVF 10 ml PRN PRN Administration Saline Flush - Exam General Appearance: NAD Heart: RRR, no gallops Respiratory: no wheezes, no ronchi Gastrointestinal: soft, non-distended Extremities: no edema Psychiatric: normal affect, A&O x 3 Hosp A/P - Plan DVT proph w/heparin 1. Acute on chronic systolic heart failure exacerbation 2. Acute kidney injury on chronic kidney disease, stage 4/ESRD - started on dialysis 3. Hyperkalemia - improved 4. Metabolic acidosis. 5. Type 2 myocardial infarction. 6. Anemia due to renal insufficiency. 7. DM2 with diabetic nephropathy 8. Hypertension. 9. Hyperlipidemia. 10. Vit D def PLAN: Cont Coreg 3.125 BID Transfuse 1 unit PRBC Cont Lantus with sliding scale AM labs Dialysis per Nephrology Echo reviewed
[2019-08-30] MEDS: Famotidine 20 MG TAB PO SCH (21:08)
[2019-08-30] MEDS: Aspirin 81 mg Enteric Coated Tablet PO SCH (21:08)
[2019-08-30] MEDS: traMADol HCl 50 MG TAB PO PRN (21:11)
[2019-08-31] MEDS ORDERED: diphenhydrAMINE 25 MG CAP PO SCH (02:35)
[2019-08-31] MEDS ORDERED: diphenhydrAMINE 25 MG CAP ONE (02:37)
[2019-08-31 07:51] LABS: Platelet Count 213 thou/uL (130-400)
[2019-08-31 08:06] LABS: Albumin 2.4 g/dL (3.4-4.8); Anion Gap 13 mmol/L (10-20); BUN (Urea Nitrogen) 18 mg/dL (9.8-20.1); BUN/Creatinine Ratio 4.41; Calc. Creatinine Clearance 16 mL/min (70-130); Calcium 7.7 mg/dL (7.8-10.44); Carbon Dioxide 28 mmol/L (23-31); Chloride 102 mmol/L (98-107); Estimated GFR-MDRD 11; Glucose 122 mg/dL (80-115); Phosphorus 4.5 mg/dL (2.3-4.7); Sodium 139 mmol/L (136-145)
[2019-08-31] MEDS: Insulin Glargine 10 UNITS in Pre-Filled Syringe 1 EACH SC SCH (08:52)
[2019-08-31] MEDS: Doxycycline 100 MG CAP PO SCH ×2 (09:15→21:42)
[2019-08-31] MEDS: Carvedilol 3.125 MG TAB PO SCH ×2 (09:15→18:26)
[2019-08-31] MEDS: Senokot S 8.6-50 MG TAB PO SCH ×2 (09:15→21:42)
[2019-08-31] MEDS: Saccharomyces boulardii 250 MG CAP PO SCH (09:16)
[2019-08-31] MEDS ORDERED: Heparin 10,000 UNITS/ 10 ML VIAL ONE (09:57)
[2019-08-31 11:54] LABS: ANA Symphony (Qualitative) Negative (Negative); ANA Symphony (Quantitative) 0.2 Ratio (< 0.7 Negative); dsDNA IgG Antibody 0.9 IU/mL (<10 Negative)
[2019-08-31 12:15] LABS: EliA Vaculitis New Method **** NEW METHOD ****; Glomerular Basemt Membrane Ab Less than 1.9 EliAU/mL (<7 Negative)
[2019-08-31] MEDS ORDERED: Famotidine/PF 20 mg/2ml Vial ONE (12:43)
[2019-08-31] MEDS ORDERED: Fentanyl 100 MCG/2 ML VIAL ONE ×2 (12:43→15:04)
[2019-08-31] MEDS ORDERED: CEFAZOLIN 2 GM in Premix Bag 1 BAG IVPB SCH (12:45)
[2019-08-31] MEDS ORDERED: Ioversol 68 % 50 ML VIAL ONE (12:54)
[2019-08-31] MEDS ORDERED: Lidocaine 1% w/Epinephrine 1:100K 20 ML VIAL ONE (12:54)
[2019-08-31] MEDS ORDERED: Bupivacaine 0.25% HCL 30 ML VIAL ONE (12:54)
[2019-08-31] MEDS ORDERED: Heparin 5,000 UNITS/ML VIAL ONE (12:54)
[2019-08-31] MEDS ORDERED: Sodium Chloride 0.9% 20 ML ONE (12:54)
[2019-08-31] MEDS ORDERED: Protamine Sulfate 50 MG/5 ML VIAL ONE (12:54)
[2019-08-31] MEDS ORDERED: Heparin 10,000 UNITS/1 ML VIAL ONE (12:54)
[2019-08-31] MEDS ORDERED: Ondansetron PF 4 MG/2 ML Vial ONE (13:21)
[2019-08-31] MEDS ORDERED: Succinylcholine Chloride 20 MG/ML 10 ml SYRINGE FS ONE (13:21)
[2019-08-31] MEDS ORDERED: Metoclopramide HCl 10 MG/2 ML VIAL ONE (13:21)
[2019-08-31] MEDS ORDERED: Lidocaine 1% PF 5 ML VIAL ONE (13:21)
[2019-08-31] MEDS ORDERED: Glycopyrrolate 0.2 MG/ML 5 ML SYRINGE ONE (13:21)
[2019-08-31] MEDS ORDERED: PROPOFOL 200 MG/20 ML VIAL ONE (13:21)
[2019-08-31] MEDS ORDERED: PHENYLEPHRINE-NS 100 MCG/ML 10 ML SYRINGE ONE (13:21)
--- NOTE | 2019-08-31 13:21 | CON ---
DATE OF CONSULTATION: REASON FOR CONSULT: Need for dialysis access. HISTORY OF PRESENT ILLNESS: Ms. Smith is a 64-year-old woman, who was admitted to the hospital with shortness of breath due to fluid overload and combined cardiac and renal failure. She denies any known history of renal disease in the past, but on the past admission in 2017, her creatinine was mildly elevated at that time. It is felt that she has acute on chronic renal failure and cardiorenal syndrome. She was started on dialysis a few days ago via a femoral dialysis catheter and requires permanent access at this time. Her appellate law clerk does not think that she is going to recover her renal functions so he has requested a fistula and a tunneled hemodialysis catheter. The patient states that she is still somewhat short of breath, although less so than when she came into the hospital. She has not had any fevers or chills and has been tolerating dialysis fairly well. She states that she was transfused yesterday due to her blood count being low. PAST MEDICAL HISTORY: 1. Coronary artery disease, status post stent placement x2. 2. Diabetes. 3. Hypertension. 4. Acute on chronic renal failure. PAST SURGICAL HISTORY: 1. Left shoulder surgery. 2. Left ankle reconstruction with a skin and vascular graft taken from her left forearm after crush injury to her left ankle. 3. Left great toe amputation for diabetic infection. 4. Right [id number] amputation for infection status post fracture blisters from a broken bone from a fall. ALLERGIES: THE PATIENT REPORTS AN ALLERGY TO CIPROFLOXACIN. MEDICATIONS: Inpatient medications include; 1. Aspirin. 2. Coreg. 3. Vibramycin. 4. Epogen. 5. Ergocalciferol. 6. Pepcid. 7. Sliding scale insulin. 8. Subcu heparin. 9. Florastor. 10. Docusate and multiple p.r.n. 11. She did receive a dose of ceftriaxone, but this has been discontinued. Outpatient medications include; 1. Aspirin. 2. Atorvastatin. 3. Lasix. 4. Losartan. 5. Meloxicam. 6. Metformin. 7. Carvedilol. SOCIAL HISTORY: The patient lives independently. She does not smoke, drink, or use illicit drugs. She has a right AKA prosthesis. FAMILY HISTORY: Noncontributory. REVIEW OF SYSTEMS: Ten-system review of systems is negative except per HPI. PHYSICAL EXAMINATION: VITAL SIGNS: Temperature 98.4, heart rate 77, respirations 18, 98% saturated on room air, blood pressure 158/75. GENERAL: Reveals a healthy-appearing woman, in no acute distress. She is not flushed or toxic in appearance. She is not jaundiced or icteric. She is not noticeably edematous. HEENT: Unremarkable. NECK: Supple without lymphadenopathy or thyroid nodules. HEART: Regular in its rate and rhythm. I do not appreciate any murmurs, rubs, or gallops. LUNGS: Clear to auscultation anteriorly. ABDOMEN: Soft, nontender, nondistended. EXTREMITIES: She does not have any significant edema in her extremities. She has palpable forearm veins on the right with the cephalic vein going onto the dorsum of the hand. She has some bruising in the antecubital fossa at a former IV site, but this IV has been removed. She has a large skin graft over her left forearm and a scar over the radial artery, where that was harvested. She has slightly ulnar dominant filling on Fredo testing. NEUROLOGIC: No focal deficits except markedly diminished sensation in the left foot due to her diabetes and her crush injury. PSYCHIATRIC: Alert, oriented, and appropriate. LABORATORY DATA: White count is 6.1 yesterday, hemoglobin went from 6.8 before her transfusion to 10 this morning. BUN and creatinine are 18 and 4.08. Potassium is 4 and bicarb is 28. Glucoses ranged from 129 to 195. Vein mapping is reviewed. The vessels were not seen in the distal forearm due to her previous surgery. Both the cephalic and the basilic veins looked to be of good caliber on the left arm above the elbow. On the right side, she has a partial thrombus in the upper arm cephalic vein, but the lower arm cephalic vein is good caliber. The basilic is reasonable, although that is smaller toward the elbow. ASSESSMENT: End-stage renal failure, felt to represent acute on chronic renal failure and her appellate law clerk does not think that her renal function will recover and he believes that she will require a long-term dialysis, so a fistula as well as a tunneled hemodialysis catheter have been requested. The patient is right-handed so ordinarily I would prefer to place the fistula on the left. However, she has had extensive surgery on her left forearm, so this would necessitate an upper arm fistula with likely transposition due to her body habitus. Her right forearm cephalic vein looks usable for dialysis, so we are going to attempt a fistula at this location first. If this is not suitable for her dialysis access, then we will attempt at a later date, a left upper arm fistula. She understands that if she requires an upper arm fistula, then transposition may be necessary even if we use the cephalic vein due to her body habitus. She will also require a tunneled hemodialysis access for ongoing dialysis access while her fistula is maturing. Both procedures were discussed in detail with the patient and her family. The inherent risks of both these procedures were discussed as well. These include, but are not limited to, bleeding, infection, risks of anesthesia, hemothorax, pneumothorax and DVT, failure of the fistula to develop or signs and symptoms of arterial steal were discussed, and she knows to seek immediate evaluation if she develops any of these symptoms. All of her questions were answered and she has been posted for the operating room later today. Antibiotics general education instructor were also ordered. Job ID: [id number]
[2019-08-31] MEDS ORDERED: Nitroglycerin 2% Ointment 1 INCH/1 GM Packet ONE (13:56)
[2019-08-31 16:09] LABS: Cytoplasmic (C-ANCA) <1:20 titer (Neg:<1:20); Myeloperoxidase AutoAbs <9.0 U/mL (0.0-9.0); Perinuclear (P-ANCA) <1:20 titer (Neg:<1:20); Proteinase-3 AutoAbs Less than 3.5 U/mL (0.0-3.5)
--- NOTE | 2019-08-31 17:29 | RAD ---
Chest AP view INDICATION: Post HemoSplit COMPARISON: Prior exam dated August 27, 2019 FINDINGS: Lungs:There is worsening perihilar edema Cardiac silhouette:There is worsening cardiomegaly Pulmonary vasculature:There is worsening moderate to severe pulmonary vascular congestion Pleural spaces:There are worsening bilateral pleural effusions, left greater than right (small in siz e) Upper abdomen:No abnormality seen. Osseous structures: No acute osseous abnormality. Additional findings:There is a new right IJ dialysis catheter with the tip projecting in the region o f the caval atrial junction. IMPRESSION: Worsening volume overload or CHF. New right IJ dialysis catheter. No pneumothorax.
--- NOTE | 2019-08-31 17:39 | PRG ---
DATE OF SERVICE: 08/31/2019 SUBJECTIVE: This is a 64-year-old female, being seen for end-stage kidney disease. The patient denied nausea, vomiting, or chest pain. OBJECTIVE: See above. Awake, alert, in no acute distress. VITAL SIGNS: Afebrile, pulse 77, breathing 16, blood pressure 136/68. GENERAL APPEARANCE AND MENTAL STATUS: Fair. HEAD/NECK: Normocephalic. Atraumatic. EYES: EOMI. No deformity. EARS: Clear. No ulcers. NOSE: Intact. No lesions. MOUTH: Clear. No discharge. THROAT: Clear. No exudate. LUNGS: Clear. No crackles. CARDIAC: S1, S2. No rub. ABDOMEN: Benign. Bowel sounds positive. GENITALIA/RECTUM: Lara absent. BACK/EXTREMITIES: Edema 0+. NEUROLOGICAL: Alert and motor intact. SKIN: LYMPHATICS: LABORATORY DATA: Reviewed. ASSESSMENT AND PLAN: 1. Stage 6 chronic kidney disease, stable. 2. Hypertension, stable. 3. Anemia, stable. 4. Medication based on GFR appropriate. Job ID: [id number]
--- NOTE | 2019-08-31 18:00 | PDOC.HOSPP ---
- Subjective Encounter Date: 08/31/19 Encounter Time: 17:58 Subjective: Patient seen and examined for MAY. s/p tunnelled catheter. No CP or SOB. No new complaints. No overnight events - Objective Vital Signs & Weight: Vital Signs (12 hours) Temp Pulse Resp BP Pulse Ox 08/31/19 11:40 98.4 F 77 18 158/75 H 98 08/31/19 07:38 98.4 F 80 18 136/68 96 08/31/19 07:35 96 Weight Admit Weight 167 lb 5 oz Weight 165 lb 5.547 oz I&O: 08/30/19 08/31/19 09/01/19 06:59 06:59 06:59 Intake Total 1495 1084 Output Total 2850 400 Balance -1355 684 Result Diagrams: 08/31/19 07:30 08/31/19 07:30 Additional Labs: Accuchecks 08/31/19 08/31/19 08/31/19 17:35 10:45 05:46 POC Glucose 144 H 138 H 136 H 08/30/19 20:27 POC Glucose 129 H EKG Reviewed by me: Yes (Tele SR) Hospitalist ROS - Review of Systems Respiratory: denies: cough, dry, shortness of breath, hemoptysis, SOB with excertion, pleuritic pain, sputum, wheezing, other Cardiovascular: denies: chest pain, palpitations, orthopnea, paroxysmal noc. dyspnea, edema, light headedness, other - Medication Medications: Active Medications Generic Name Dose Route Start Last Admin Trade Name Freq PRN Reason Stop Dose Admin Acetaminophen 650 mg 08/27/19 12:58 08/29/19 11:45 Tylenol PO 650 mg Q4H PRN Administration Headache/Fever/Mild Pain (1-3) Albuterol/Ipratropium 3 ml 08/27/19 17:17 08/30/19 23:16 Duoneb NEB 3 ml [id number] PRN Administration SOB &/or Wheezing Aspirin 81 mg 08/27/19 21:00 08/30/19 21:08 Ecotrin PO 81 mg HS ROLAND Administration Carvedilol 3.125 mg 08/30/19 08:00 08/31/19 09:15 Coreg PO 3.125 mg BID-WM [facility]OLAND Administration Doxycycline Hyclate 100 mg 08/28/19 21:00 08/31/19 09:15 Vibramycin PO 100 mg BID [facility] Administration Epoetin Tong-epbx 10,000 unit 08/29/19 13:15 08/29/19 14:47 Retacrit SC 10,000 unit Q7D ROLAND Administration Famotidine 20 mg 08/27/19 21:00 08/30/19 21:08 Pepcid PO 20 mg QPM ROLAND Administration Heparin Sodium (Porcine) 5,000 units 08/27/19 21:00 08/30/19 09:43 Heparin SC 5,000 units BID [facility] Administration Insulin Glargine 10 units/ 0.1 mls @ 0 mls/hr 08/30/19 09:00 08/31/19 08:52 Miscellaneous Medication SC Not Given QAM [facility] Insulin Human Regular 0 units 08/28/19 10:17 08/30/19 14:18 Humulin R SC 2 unit .MODERATE SLIDING SC PRN Administration Moderate Correctional Scale Ondansetron HCl 4 mg 08/28/19 10:17 08/29/19 13:27 Zofran Odt PO 4 mg Q6H PRN Administration Nausea/Vomiting Saccharomyces Boulardii 250 mg 08/29/19 09:00 08/31/19 09:16 Florastor PO 250 mg DAILY [facility] Administration Senna/Docusate Sodium 1 tab 08/27/19 21:00 08/31/19 09:15 Senokot S PO Not Given BID [facility] Sodium Chloride 10 ml 08/27/19 12:58 08/30/19 14:14 Flush - Normal Saline IVF 10 ml PRN PRN Administration Saline Flush Tramadol HCl 50 mg 08/30/19 12:39 08/30/19 21:11 Ultram PO 50 mg Q12H PRN Administration Moderate Pain (4-6) - Exam General Appearance: NAD Heart: RRR, no gallops Respiratory: no wheezes, no rales Gastrointestinal: non-tender, non-distended, normal bowel sounds Extremities: no cyanosis Hosp A/P - Plan DVT proph w/SCDs 1. Acute on chronic systolic heart failure exacerbation 2. Acute kidney injury on chronic kidney disease, stage 4/ESRD - started on dialysis 3. Hyperkalemia - improved 4. Metabolic acidosis. 5. Type 2 myocardial infarction. 6. Anemia due to renal insufficiency. s/p 2 units this admission PRBC 7. DM2 with diabetic nephropathy 8. Hypertension. 9. Hyperlipidemia. 10. Vit D def PLAN: Increase Coreg 6.25mg BID Cont Lantus with sliding scale AM labs Not on ACEI/ARB/Aldactone due to renal failure Await outpt dialysis
[2019-08-31] MEDS: Aspirin 81 mg Enteric Coated Tablet PO SCH (21:42)
[2019-08-31] MEDS: Famotidine 20 MG TAB PO SCH (21:42)
[2019-08-31] MEDS: traMADol HCl 50 MG TAB PO PRN (21:46)
[2019-09-01] MEDS: Acetaminophen 325 MG TAB PO PRN ×2 (04:14→21:06)
[2019-09-01 04:35] LABS: Platelet Count 239 thou/uL (130-400)
[2019-09-01 04:53] LABS: Albumin 2.4 g/dL (3.4-4.8); Anion Gap 16 mmol/L (10-20); BUN (Urea Nitrogen) 12 mg/dL (9.8-20.1); BUN/Creatinine Ratio 4.03; Calc. Creatinine Clearance 22 mL/min (70-130); Calcium 8.1 mg/dL (7.8-10.44); Carbon Dioxide 21 mmol/L (23-31); Chloride 102 mmol/L (98-107); Estimated GFR-MDRD 16; Glucose 87 mg/dL (80-115); Potassium 4.9 mmol/L (3.5-5.1); Sodium 134 mmol/L (136-145)
[2019-09-01] MEDS: Loratadine 10 MG TAB PO SCH (08:58)
[2019-09-01] MEDS: Senokot S 8.6-50 MG TAB PO SCH ×2 (08:58→21:03)
[2019-09-01] MEDS: Doxycycline 100 MG CAP PO SCH ×2 (08:59→21:03)
[2019-09-01] MEDS: Insulin Glargine 10 UNITS in Pre-Filled Syringe 1 EACH SC SCH (08:59)
[2019-09-01] MEDS: Carvedilol 6.25 MG TAB PO SCH ×2 (08:59→16:54)
[2019-09-01] MEDS: Saccharomyces boulardii 250 MG CAP PO SCH (08:59)
--- NOTE | 2019-09-01 11:16 | PRG ---
DATE OF SERVICE: 09/01/2019 SUBJECTIVE: This is a 64-year-old female being seen for end-stage renal disease. The patient denied any nausea, vomiting, or chest pain. OBJECTIVE: CONSTITUTIONAL: On exam, the patient is awake and alert. VITAL SIGNS: Afebrile, pulse 85, breathing 16, and blood pressure 157/74. GENERAL APPEARANCE AND MENTAL STATUS: Fair. HEAD/NECK: Normocephalic. Atraumatic. EYES: EOMI. No deformity. EARS: Clear. No ulcers. NOSE: Intact. No lesions. MOUTH: Clear. No discharge. THROAT: Clear. No exudate. LUNGS: Clear. No crackles. CARDIAC: S1, S2. No rub. ABDOMEN: Benign. Bowel sounds positive. GENITALIA/RECTUM: Lara absent. BACK/EXTREMITIES: Edema 0+. NEUROLOGICAL: Alert and motor intact. SKIN: LYMPHATICS: LABORATORY DATA: Reviewed. ASSESSMENT AND PLAN: 1. Stage chronic kidney disease, stable. 2. Hypertension, stable. 3. Anemia, stable. Plan dialysis tomorrow. Job ID: [id number]
[2019-09-01] MEDS: traMADol HCl 50 MG TAB PO PRN (12:12)
[2019-09-01] MEDS: Insulin Regular 300 UNITS/3 ML VIAL SC PRN ×2 (12:16→17:39)
[2019-09-01 13:36] VITALS: BMI 27.1
[2019-09-01] MEDS: Famotidine 20 MG TAB PO SCH (21:03)
[2019-09-01] MEDS: Aspirin 81 mg Enteric Coated Tablet PO SCH (21:03)
--- NOTE | 2019-09-01 21:10 | PDOC.HOSPP ---
- Subjective Encounter Date: 09/01/19 Encounter Time: 09:00 Subjective: Patient seen and examined for MAY. No new CP. No fever or chills. No new complaints. No overnight events - Objective Vital Signs & Weight: Vital Signs (12 hours) Temp Pulse Resp BP Pulse Ox 09/01/19 20:00 98.8 F 85 18 160/77 H 95 09/01/19 16:51 99.1 F 86 14 160/73 H 92 L 09/01/19 12:11 98.4 F 82 16 158/76 H 97 Weight Admit Weight 167 lb 5 oz Weight 163 lb 2.273 oz I&O: 08/31/19 09/01/19 09/02/19 06:59 06:59 06:59 Intake Total 1084 750 720 Output Total 400 550 Balance 684 200 720 Result Diagrams: 09/01/19 04:09 09/01/19 04:09 Additional Labs: Accuchecks 09/01/19 09/01/19 09/01/19 16:48 11:57 05:54 POC Glucose 179 H 163 H 100 EKG Reviewed by me: Yes (Tele SR) Hospitalist ROS - Review of Systems Respiratory: denies: cough, dry, shortness of breath, hemoptysis, SOB with excertion, pleuritic pain, sputum, wheezing, other Cardiovascular: denies: chest pain, palpitations, orthopnea, paroxysmal noc. dyspnea, edema, light headedness, other - Medication Medications: Active Medications Generic Name Dose Route Start Last Admin Trade Name Freq PRN Reason Stop Dose Admin Acetaminophen 650 mg 08/27/19 12:58 09/01/19 21:06 Tylenol PO 650 mg Q4H PRN Administration Headache/Fever/Mild Pain (1-3) Albuterol/Ipratropium 3 ml 08/27/19 17:17 08/30/19 23:16 Duoneb NEB 3 ml [id number] PRN Administration SOB &/or Wheezing Aspirin 81 mg 08/27/19 21:00 09/01/19 21:03 Ecotrin PO 81 mg HS ROLAND Administration Carvedilol 6.25 mg 09/01/19 08:00 09/01/19 16:54 Coreg PO 6.25 mg BID-WM ROLAND Administration Doxycycline Hyclate 100 mg 08/28/19 21:00 09/01/19 21:03 Vibramycin PO 100 mg BID ROLAND Administration Epoetin Tong-epbx 10,000 unit 08/29/19 13:15 08/29/19 14:47 Retacrit SC 10,000 unit Q7D ROLAND Administration Famotidine 20 mg 08/27/19 21:00 09/01/19 21:03 Pepcid PO 20 mg QPM ROLAND Administration Heparin Sodium (Porcine) 5,000 units 08/27/19 21:00 08/30/19 09:43 Heparin SC 5,000 units BID ROLAND Administration Insulin Glargine 10 units/ 0.1 mls @ 0 mls/hr 08/30/19 09:00 09/01/19 08:59 Miscellaneous Medication SC 0.1 mls QAM ROLAND Administration Insulin Human Regular 0 units 08/28/19 10:17 09/01/19 17:39 Humulin R SC 2 unit .MODERATE SLIDING SC PRN Administration Moderate Correctional Scale Loratadine 10 mg 09/01/19 09:00 09/01/19 08:58 Claritin PO 10 mg Q2DAYS@0900 ROLAND Administration Ondansetron HCl 4 mg 08/28/19 10:17 08/29/19 13:27 Zofran Odt PO 4 mg Q6H PRN Administration Nausea/Vomiting Saccharomyces Boulardii 250 mg 08/29/19 09:00 09/01/19 08:59 Florastor PO 250 mg DAILY [facility] Administration Senna/Docusate Sodium 1 tab 08/27/19 21:00 09/01/19 21:03 Senokot S PO Not Given BID [facility] Sodium Chloride 10 ml 08/27/19 12:58 08/30/19 14:14 Flush - Normal Saline IVF 10 ml PRN PRN Administration Saline Flush Tramadol HCl 50 mg 08/30/19 12:39 09/01/19 12:12 Ultram PO 50 mg Q12H PRN Administration Moderate Pain (4-6) - Exam General Appearance: NAD Heart: RRR, no gallops Respiratory: no wheezes, no rales Gastrointestinal: non-tender, non-distended, normal bowel sounds Extremities: no cyanosis Hosp A/P - Plan DVT proph w/SCDs 1. Acute on chronic systolic heart failure exacerbation 2. Acute kidney injury on chronic kidney disease, stage 4/ESRD - started on dialysis 3. Hyperkalemia - improved 4. Metabolic acidosis. 5. Type 2 myocardial infarction. 6. Anemia due to renal insufficiency. s/p 2 units this admission PRBC 7. DM2 with diabetic nephropathy 8. Hypertension. 9. Hyperlipidemia. 10. Vit D def PLAN: Cont Coreg 6.25mg BID Cont Lantus 10 units daily Cont sliding scale Not on ACEI/ARB/Aldactone due to renal failure Await outpt dialysis setup
[2019-09-02] MEDS: Ondansetron ODT 4 MG TAB PO PRN (07:40)
[2019-09-02] MEDS: Doxycycline 100 MG CAP PO SCH ×2 (12:09→20:34)
[2019-09-02] MEDS: Saccharomyces boulardii 250 MG CAP PO SCH (12:10)
[2019-09-02] MEDS: Carvedilol 6.25 MG TAB PO SCH ×2 (12:10→16:49)
[2019-09-02] MEDS: Insulin Glargine 10 UNITS in Pre-Filled Syringe 1 EACH SC SCH (12:15)
[2019-09-02] MEDS: Senokot S 8.6-50 MG TAB PO SCH ×2 (12:17→20:34)
--- NOTE | 2019-09-02 14:20 | PRG ---
DATE OF SERVICE: 09/02/2019 SUBJECTIVE: A 64-year-old female being seen for end-stage kidney disease. The patient denied nausea, vomiting, or chest pain. OBJECTIVE: CONSTITUTIONAL: On exam, the patient is awake and alert. VITAL SIGNS: Afebrile, pulse 76, breathing 16, and blood pressure 152/78. GENERAL APPEARANCE AND MENTAL STATUS: Fair. HEAD/NECK: Normocephalic. Atraumatic. EYES: EOMI. No deformity. EARS: Clear. No ulcers. NOSE: Intact. No lesions. MOUTH: Clear. No discharge. THROAT: Clear. No exudate. LUNGS: Clear. No crackles. CARDIAC: S1, S2. No rub. ABDOMEN: Benign. Bowel sounds positive. GENITALIA/RECTUM: Lara absent. BACK/EXTREMITIES: Edema 0+. NEUROLOGICAL: Alert and motor intact. SKIN: LYMPHATICS: LABORATORY DATA: Reviewed. ASSESSMENT AND PLAN: 1. Stage 6 chronic kidney disease. Plan dialysis. 2. Hypertension, stable. 3. Anemia, stable. 4. Medication based on GFR appropriate. Job ID: [id number]
--- NOTE | 2019-09-02 15:28 | PDOC.OP ---
Operative Note - Operative Note Operative Note: DATE OF PROCEDURE: 08/31/2019 PROCEDURE: Placement of right internal jugular tunneled hemodialysis catheter with ultrasound and fluoroscopic guidance and right Wiliam AV fistula. SURGEON: Maria Teresa Winslow M.D. PREOPERATIVE DIAGNOSIS: Acute/Chronic renal failure. POSTOPERATIVE DIAGNOSIS: Acute/Chronic renal failure. HISTORY: Patient with renal failure and fluid overload requiring dialysis. A tunneled hemodialysis catheter for ongoing dialysis and AV fistula for long- term access has been requested by the patients instrument assembler. PROCEDURE: After informed consent was obtained and appropriate preoperative antibiotics were administered, the patient was taken to the Operating Room, placed in the supine position and general anesthesia was administered. The neck and chest were prepped and draped in a standard sterile fashion and the patient placed in Trendelenburg position. A sterile ultrasound probe was used to identify the patent compressible right IJ vein which was accessed under direct ultrasound guidance. A wire was threaded through the needle and confirmed by ultrasound to be within the patent compressible vessel with the tip in the vena cava by fluoroscopy. Local anesthesia was infused to the skin and subcutaneous tissues of the right neck and chest. An infraclavicular incision was made and a catheter tunneled from the infraclavicular to the right IJ access site. The right IJ was sequentially dilated over the wire following which a dilator and sheath were placed over the wire and the dilator and wire removed leaving the sheath in place. The catheter was tunneled through the sheath which was then split and removed leaving the catheter in place. This was confirmed by fluoroscopy to be in good position in the superior vena cava with no kinking of the course of the catheter. Both ports easily aspirated dark venous nonpulsatile blood and easily flushed without resistance. Heparin was instilled to the quantity specified on the hub, and the hub was secured to the skin with 3-0 nylon sutures. The skin incision at the neck was closed in two layers with 4-0 Monocryl suture and Dermabond dressings were placed. The skin at the exit site was snugged up around the catheter with 4-0 Monocryl suture and Dermabond was placed there as well. Once the Dermabond was dry, a Biopatch and Tegaderm dressing was placed at the exit site. Attention was then turned to the creation of the arteriovenous fistula. The palpable cephalic vein and radial artery were marked on the skin and local anesthesia infused. An incision was made between these 2 structures and dissection carried down to the cephalic vein. This was found to be sclerotic but there was a larger branch coursing toward the dorsum of the hand which appeared to be patent. This was dissected out through a separate counterincision and was felt to be of adequate caliber and quality to support an AV fistula. The vein was marked for orientation, ligated distally and divided and spatulated. The vein was interrogated with cardiac dilators and easily accepted up to a 3.5 mm dilator. The vein was flushed with heparinized saline and clamped and tunneled over to the incision near the radial artery. The radial artery was identified and dissected free and was felt to be of adequate caliber and quality to support a fistula, although moderately calcified. This was dissected free. Heparin was administered systemically and allowed to circulate for 3 minutes. After the heparin had circulated for 3 minutes, the radial artery was clamped proximally and distally. An anterior arteriotomy was created with an 11 blade and extended with Clayton scissors. The vein was spatulated and an end-to-side anastomosis was created with excellent technical result. Prior to tying down the anastomosis, the arterial inflow was released flushing the anastomosis. The anastomosis was then secured and flow was established first through the fistula following which flow was restored through the artery. A bleeding point at the anastomosis was secured with a 6-0 Prolene suture following which hemostasis was excellent. The patient had a palpable thrill in the cephalic vein as well as a good Doppler signal to the level of the antecubital fossa. The wound was irrigated and examined for hemostasis was again confirmed to be excellent. The subcutaneous tissues were reapproximated with a running 3-0 Monocryl sutures and the skin was closed with running 4-0 subcuticular Monocryl suture. Dermabond dressings were placed. Prior to leaving the operating room the fistula was again examined by Doppler and a good bruit confirmed. The patient was then taken to recovery in good condition. Estimated blood loss was minimal. There were no complications. There were no specimens.
[2019-09-02] MEDS: traMADol HCl 50 MG TAB PO PRN (15:35)
[2019-09-02] MEDS: Insulin Regular 300 UNITS/3 ML VIAL SC PRN (18:13)
[2019-09-02] MEDS: Aspirin 81 mg Enteric Coated Tablet PO SCH (20:34)
[2019-09-02] MEDS: Famotidine 20 MG TAB PO SCH (20:34)
--- NOTE | 2019-09-02 22:09 | PDOC.HOSPP ---
- Subjective Encounter Date: 09/02/19 Encounter Time: 09:30 Subjective: Patient seen and examined for MAY. Tolerating dialysis. No CP. No new complaints. No overnight events - Objective Vital Signs & Weight: Vital Signs (12 hours) Temp Pulse Resp BP BP Pulse Ox 09/02/19 20:00 98.9 F 76 18 145/67 H 100 09/02/19 16:49 176/87 H 09/02/19 15:33 99.8 F H 80 16 166/74 H 95 09/02/19 12:00 98.2 F 76 16 152/78 H 96 Weight Admit Weight 167 lb 5 oz Weight 163 lb 5.547 oz I&O: 09/01/19 09/02/19 09/03/19 06:59 06:59 06:59 Intake Total 750 1200 250 Output Total 550 300 Balance 200 900 250 Result Diagrams: 09/01/19 04:09 09/01/19 04:09 Additional Labs: Accuchecks 09/02/19 09/02/19 09/02/19 21:12 17:02 12:20 POC Glucose 140 H 211 H 109 09/02/19 09/01/19 05:02 21:02 POC Glucose 120 H 161 H EKG Reviewed by me: Yes (Tele SR) Hospitalist ROS - Review of Systems Cardiovascular: denies: chest pain, palpitations, orthopnea, paroxysmal noc. dyspnea, edema, light headedness, other Gastrointestinal: denies: nausea, vomiting, abdominal pain, diarrhea, constipation, melena, hematochezia, other - Medication Medications: Active Medications Generic Name Dose Route Start Last Admin Trade Name Freq PRN Reason Stop Dose Admin Acetaminophen 650 mg 08/27/19 12:58 09/01/19 21:06 Tylenol PO 650 mg Q4H PRN Administration Headache/Fever/Mild Pain (1-3) Albuterol/Ipratropium 3 ml 08/27/19 17:17 09/02/19 08:23 Duoneb NEB 3 ml [id number] PRN Administration SOB &/or Wheezing Aspirin 81 mg 08/27/19 21:00 09/02/19 20:34 Ecotrin PO 81 mg HS ROLAND Administration Carvedilol 6.25 mg 09/01/19 08:00 09/02/19 16:49 Coreg PO 6.25 mg BID-WM ROLAND Administration Doxycycline Hyclate 100 mg 08/28/19 21:00 09/02/19 20:34 Vibramycin PO 100 mg BID ROLAND Administration Epoetin Tong-epbx 10,000 unit 08/29/19 13:15 08/29/19 14:47 Retacrit SC 10,000 unit Q7D ROLAND Administration Famotidine 20 mg 08/27/19 21:00 09/02/19 20:34 Pepcid PO 20 mg QPM ROLAND Administration Heparin Sodium (Porcine) 5,000 units 08/27/19 21:00 08/30/19 09:43 Heparin SC 5,000 units BID ROLAND Administration Insulin Glargine 10 units/ 0.1 mls @ 0 mls/hr 08/30/19 09:00 09/02/19 12:15 Miscellaneous Medication SC 0.1 mls QAM ROLAND Administration Insulin Human Regular 0 units 08/28/19 10:17 09/02/19 18:13 Humulin R SC 4 unit .MODERATE SLIDING SC PRN Administration Moderate Correctional Scale Loratadine 10 mg 09/01/19 09:00 09/01/19 08:58 Claritin PO 10 mg Q2DAYS@0900 ROLAND Administration Ondansetron HCl 4 mg 08/28/19 10:17 09/02/19 07:40 Zofran Odt PO 4 mg Q6H PRN Administration Nausea/Vomiting Saccharomyces Boulardii 250 mg 08/29/19 09:00 09/02/19 12:10 Florastor PO 250 mg DAILY [facility] Administration Senna/Docusate Sodium 1 tab 08/27/19 21:00 09/02/19 20:34 Senokot S PO Not Given BID [facility] Sodium Chloride 10 ml 08/27/19 12:58 08/30/19 14:14 Flush - Normal Saline IVF 10 ml PRN PRN Administration Saline Flush Tramadol HCl 50 mg 08/30/19 12:39 09/02/19 15:35 Ultram PO 50 mg Q12H PRN Administration Moderate Pain (4-6) - Exam General Appearance: NAD Neck: supple, no JVD Heart: RRR, no gallops Respiratory: no wheezes, no ronchi Gastrointestinal: non-tender, non-distended Extremities: no cyanosis Hosp A/P - Plan DVT proph w/SCDs 1. Acute on chronic systolic heart failure exacerbation 2. Acute kidney injury on chronic kidney disease, stage 4/ESRD - started on dialysis 3. Hyperkalemia - improved 4. Metabolic acidosis. 5. Type 2 myocardial infarction. 6. Anemia due to renal insufficiency. s/p 2 units this admission PRBC 7. DM2 with diabetic nephropathy 8. Hypertension. 9. Hyperlipidemia. 10. Vit D def PLAN: Cont Dialysis per Nephrology Cont current dose of Coreg Cont Lantus with sliding scale Not on ACEI/ARB/Aldactone due to renal failure Outpt dialysis setup pending
[2019-09-03] MEDS: Insulin Glargine 10 UNITS in Pre-Filled Syringe 1 EACH SC SCH (09:11)
[2019-09-03] MEDS: Saccharomyces boulardii 250 MG CAP PO SCH (09:11)
[2019-09-03] MEDS: Carvedilol 6.25 MG TAB PO SCH (09:11)
[2019-09-03] MEDS: Senokot S 8.6-50 MG TAB PO SCH (09:11)
[2019-09-03] MEDS: Loratadine 10 MG TAB PO SCH (09:11)
[2019-09-03] MEDS: Doxycycline 100 MG CAP PO SCH (09:11)
--- NOTE | 2019-09-03 10:34 | PRG ---
DATE OF SERVICE: 09/03/2019 SUBJECTIVE: A 64-year-old female being seen for end-stage renal disease. The patient denied nausea, vomiting, or chest pain. OBJECTIVE: CONSTITUTIONAL: On exam, the patient is awake and alert. VITAL SIGNS: Pulse 75, breathing 16, blood pressure 152/71. GENERAL APPEARANCE AND MENTAL STATUS: Fair. HEAD/NECK: Normocephalic. Atraumatic. EYES: EOMI. No deformity. EARS: Clear. No ulcers. NOSE: Intact. No lesions. MOUTH: Clear. No discharge. THROAT: Clear. No exudate. LUNGS: Clear. No crackles. CARDIAC: S1, S2. No rub. ABDOMEN: Benign. Bowel sounds positive. GENITALIA/RECTUM: Lara absent. BACK/EXTREMITIES: Edema 0+. NEUROLOGICAL: Alert and motor intact. SKIN: LYMPHATICS: LABORATORY DATA: Labs reviewed. ASSESSMENT AND PLAN: 1. Stage 6 chronic kidney disease. Plan dialysis per schedule. 2. Hypertension, stable. 3. Anemia, stable. 4. Medication based on GFR appropriate. Job ID: [id number]
[2019-09-03 14:19] VITALS: BP 158/70; TEMP 97.8
--- NOTE | 2019-09-03 16:41 | DIS ---
DATE OF ADMISSION: 08/27/2019 DATE OF DISCHARGE: 09/03/2019 DISCHARGE DISPOSITION: Home. FOLLOWUP: 1. Follow up with primary care physician, Dr. Stauffer in 1 week. 2. Follow up with primary burner shaft, Dr. Chu next week as scheduled. INPATIENT DATABASES SOFTWARE CONSULTANT: General Surgery for dialysis access. DISCHARGE MEDICATIONS: 1. Aspirin 81 mg daily. 2. Atorvastatin 40 mg daily. 3. Carvedilol 6.25 mg twice a day. 4. Ergocalciferol 1.25 mg every week. The patient was seen and examined on the day of discharge. Denies any new complaints. No chest pain or shortness of breath reported. She had mild shortness of breath last night that has improved. BRIEF HOSPITAL COURSE: The patient is a 64-year-old female with congestive heart failure, coronary artery disease, diabetes mellitus type 2, hypertension, and hyperlipidemia, who presented to the emergency room with shortness of breath. Please refer to the history and physical for further details. Creatinine on admission was 8.8. Creatinine last year was 1.69. The patient was admitted to the hospital with a diagnosis of acute congestive heart failure exacerbation along with acute kidney injury. Echocardiogram showed ejection fraction of 35% to 40% with moderate mitral regurgitation and mild tricuspid regurgitation. She was evaluated by Nephrology. She has been started on hemodialysis. Outpatient hemodialysis has been arranged. She will follow up with her primary burner shaft next week on the 08 of September. INPATIENT PROCEDURES: 1. On August 28, 2019, the patient underwent right femoral Trialysis catheter that was later removed. 2. On August 31, 2019, the patient underwent placement of the right internal jugular tunneled hemodialysis catheter with right AV fistula. 3. Renal ultrasound on August 27, 2019, showed increased cortical echogenicity consistent with chronic renal disease without any hydronephrosis. LABORATORY DATA: Hemoglobin at discharge is 11. Lowest hemoglobin was 6.8. Hepatitis profile was negative. JACE was negative. Free kappa and lambda ratio were normal. Glomerular basement antibody was less than 1.9. P-ANCA was negative. FINAL DIAGNOSES: 1. Acute on chronic systolic heart failure exacerbation. The patient is not on RACHEL inhibitor, ARB, or Aldactone due to renal insufficiency. 2. Acute kidney injury on chronic kidney disease stage 4/end-stage renal disease, started on hemodialysis. 3. Hyperkalemia, resolved. 4. Metabolic acidosis, improved. 5. Type 2 myocardial infarction. 6. Anemia due to renal insufficiency, status post 2 units PRBC. 7. Diabetes mellitus type 2 with diabetic nephropathy. 8. Hypertension. 9. Hyperlipidemia. 10. Vitamin D deficiency. The patient understands the above plan of care. Job ID: [id number]
[2019-09-04] MEDS ORDERED: Ergocalciferol 1.25 MG(50,000 UNITS) CAP PO SCH ×2 (09:00)
== END 2019-09-03 15:55 | disposition home or self-care (01) | DRG 673 ==
LOC: ERS 08:56 → 2NO 12:58
PROVIDERS: ADMIT Internal Medicine; ATTEND Internal Medicine
PROC: 5A1D70Z Performance of Urinary Filtration, Intermittent, Less than 6 Hours Per Day (ICD-10-PCS; 2019-08-28)
PROC: 06HY33Z Insertion of Infusion Device into Lower Vein, Percutaneous Approach (ICD-10-PCS; 2019-08-28)
PROC: 031B0ZF Bypass Right Radial Artery to Lower Arm Vein, Open Approach (ICD-10-PCS; principal; 2019-09-02)
PROC: 0JH63XZ Insertion of Tunneled Vascular Access Device into Chest Subcutaneous Tissue and Fascia, Percutaneous Approach (ICD-10-PCS; 2019-09-02)
PROC: 02HV33Z Insertion of Infusion Device into Superior Vena Cava, Percutaneous Approach (ICD-10-PCS; 2019-09-02)
PROC: B518ZZA Fluoroscopy of Superior Vena Cava, Guidance (ICD-10-PCS; 2019-09-02)
PROC: B548ZZA Ultrasonography of Superior Vena Cava, Guidance (ICD-10-PCS; 2019-09-02)
DX: N17.9 Acute kidney failure, unspecified (principal); I21.A1 Myocardial infarction type 2; I50.23 Acute on chronic systolic (congestive) heart failure; I13.0 Hypertensive heart and chronic kidney disease with heart failure and stage 1 through stage 4 chronic kidney disease, or unspecified chronic kidney disease; E87.2 Acidosis; E87.1 Hypo-osmolality and hyponatremia; N18.6 End stage renal disease; E11.22 Type 2 diabetes mellitus with diabetic chronic kidney disease; I25.10 Atherosclerotic heart disease of native coronary artery without angina pectoris; E78.5 Hyperlipidemia, unspecified; E87.5 Hyperkalemia; D63.1 Anemia in chronic kidney disease; E55.9 Vitamin D deficiency, unspecified; Z95.5 Presence of coronary angioplasty implant and graft; Z89.611 Acquired absence of right leg above knee; Z88.1 Allergy status to other antibiotic agents; Z79.899 Other long term (current) drug therapy; Z79.84 Long term (current) use of oral hypoglycemic drugs; Z79.82 Long term (current) use of aspirin
CPT/HCPCS: 36415; 36416; 36430; 71045; 71046; 76770; 80053; 80069; 81001; 82306; 82553; 82570; 82728; 82805; 83516; 83520; 83540; 83550; 83735; 83880; 83883; 83970; 84100; 84156; 84443; 84484; 85014; 85018; 85025; 85049; 85610; 85730; 86038; 86225; 86256; 86580; 86704; 86706; 86803; 86850; 86900; 86901; 87340; 90935; 93005; 93010; 93306; 93970; 94640; 96374; C1752; C1769; G0257; G0365; J0690; J0696; J1642; J1644; J1815; J1940; J2001; J2270; J2405; J2704; J2720; J2765; J3010; J3490; J7070; J7620; P9016; Q0162; Q0163; Q5105; Q9967; S0020; S0028

== ENCOUNTER 2019-09-26 12:43 | Inpatient (IN) | payer MEDICARE ==
[2019-09-26 13:53] LABS: #Eosinphils 0.1 thou/uL (0.0-0.7); #Lymphocytes 1.9 thou/uL (1.20-3.40); #Monocytes 0.9 thou/uL (0.11-0.59); #Neutrophils 7.9 thou/uL (1.40-6.50); %Basophils 0.4 % (0.0-1.0); %Eosinophils 0.5 % (0.0-10.0); %Lymphocytes 17.7 % (21.0-51.0); %Monocytes 8.5 % (0.0-10.0); %Neutrophils 72.9 % (42.0-75.0); Hemoglobin 8.7 g/dL (12.0-16.0); Mean Corpuscular HGB CONC 33.9 g/dL (32.0-36.0); Mean Corpuscular Hemoglobin 30.8 pg (27.0-31.0); Mean Platelet Volume 7.7 fL (7.4-10.4); Platelet Count 267 thou/uL (130-400); Red Blood Cell (RBC) Count 2.81 mill/uL (4.20-5.40); White Blood Cell (WBC) Count 10.9 thou/uL (4.8-10.8)
[2019-09-26 14:15] LABS: ALT (SGPT) 10 U/L (8-55); AST (SGOT) 16 U/L (5-34); Albumin 2.8 g/dL (3.4-4.8); Alkaline Phosphatase 116 U/L (40-110); Anion Gap 16 mmol/L (10-20); BUN (Urea Nitrogen) 22 mg/dL (9.8-20.1); Bilirubin, Total 0.3 mg/dL (0.2-1.2); Calc. Creatinine Clearance 0 mL/min (70-130); Calcium 7.7 mg/dL (7.8-10.44); Carbon Dioxide 24 mmol/L (23-31); Chloride 96 mmol/L (98-107); Estimated GFR-MDRD 8; Globulin 3.2 g/dL (2.4-3.5); Glucose 262 mg/dL (80-115); Lipase 5 U/L (8-78); Potassium 4.5 mmol/L (3.5-5.1); Sodium 131 mmol/L (136-145)
[2019-09-26 14:42] LABS: CKMB 1.5 ng/mL (0-6.6)
[2019-09-26] MEDS ORDERED: Nitroglycerin 2% Ointment 1 INCH/1 GM Packet ONE (14:55)
[2019-09-26] MEDS ORDERED: Aspirin Chewable 81 MG TAB ONE (14:55)
[2019-09-26] MEDS ORDERED: Bisacodyl 5 MG TAB PO PRN (15:47)
[2019-09-26] MEDS ORDERED: Loperamide HCl 2 MG CAP PO PRN (15:47)
[2019-09-26] MEDS ORDERED: Acetaminophen 325 MG TAB PO PRN (15:47)
[2019-09-26] MEDS ORDERED: Ondansetron PF 4 MG/2 ML Vial IVP PRN (15:47)
[2019-09-26] MEDS ORDERED: Ondansetron ODT 4 MG TAB PO PRN (15:47)
[2019-09-26] MEDS ORDERED: Morphine 2 MG/ML SYRINGE SLOW IVP PRN (15:51)
[2019-09-26] MEDS ORDERED: Nitroglycerin 0.4 MG TAB (25 Tab Bottle) SL PRN (15:51)
[2019-09-26] MEDS ORDERED: Docusate 100 MG CAP PO PRN (15:52)
[2019-09-26] MEDS ORDERED: Labetalol HCl 100 MG/20 ML VIAL SLOW IVP PRN (15:52)
[2019-09-26] MEDS ORDERED: Benzonatate 100 MG CAP PO PRN (15:52)
[2019-09-26] MEDS ORDERED: diphenhydrAMINE 25 MG CAP PO PRN (15:52)
[2019-09-26] MEDS ORDERED: Melatonin 3 MG TAB PO PRN (15:52)
[2019-09-26] MEDS ORDERED: HumaLOG 300 UNITS/3 ML VIAL SC PRN (16:34)
[2019-09-26] MEDS ORDERED: Dextrose 50% Abboject 50 ML SYRINGE SLOW IVP PRN (16:34)
[2019-09-26] MEDS ORDERED: Dextrose 5% in Water 1,000 ML IV PRN (16:34)
[2019-09-26] MEDS ORDERED: Clopidogrel Bisulfate 75 MG TAB PO SCH (16:45)
[2019-09-26] MEDS ORDERED: Carvedilol 6.25 MG TAB PO SCH ×2 (17:00→19:00)
[2019-09-26 17:41] LABS: Troponin I 1.685 ng/mL (< 0.028)
--- NOTE | 2019-09-26 18:06 | PDOC.HHP ---
Hospitalist HPI - History of Present Illness Hand swelling History of Present Illness: Very pleasant 64-year-old female with past medical history of coronary artery disease with recent cardiac stent last , insulin-dependent diabetes mellitus, hypertension, hyperlipidemia, and end-stage renal disease on hemodialysis presents with hand swelling. Patient recently had right arm AV fistula placed at [facility] in [facility], she has noticed slightly worsening hand swelling over the past several weeks. This was concerning to the patient and her daughter brought her in the hospital for further evaluation. Patient's right arm does have mild swelling and well healing AV fistula site at the distal ventral radial side, there is no signs of acute infection or cellulitis. There is a good palpable thrill that the AV fistula and it appears to be without acute pathology. Incidentally patient was found have elevated cardiac enzymes. Patient and her daughter tell me that she was recently in [place] on of last week for a cardiac catheterization she had a drug eluting stent placed, brand Xience in the left anterior descending artery. She has her card with her in the emergency department. Since then the patient has been discharged on clopidogrel, of which she has been compliant and she has not missed any doses. Patient does describe an episode of mild chest discomfort last Friday when she was receiving hemodialysis, renal dialysis technician believe that this was that they had machine turned up to high, after adjustment for chest pain resolved completely. Patient at this time denies any further chest pain since this round on hemodialysis. I find the patient in the emergency department with her daughter at bedside, she is sitting upright in the bed no apparent distress breathing comfortably on room air. Patient has no other acute complaints at this time though she is concerned about swelling over the hand. Patient has been admitted to the medical unit with telemetry for close management. Nephrology and cardiology have been consult it for further recommendations. Hospitalist ROS - Review of Systems All other systems reviewed; all pertinent +/- noted in HPI/Subj Hospitalist History - Past Medical History Source: patient, family, old records Cardiac: reports: CAD, HTN, Hyperlipidemia - Past Surgical History Past Surgical History: reports: Other (Cath last . Right leg amputation. Right arm AV fistula) - Family History Family History: reports: diabetes mellitus, hypertension - Social History Smoking Status: Unknown if ever smoked Alcohol: reports: None Drugs: reports: none Living Situation: With Family Domestic Violence: Negative Activity level: uses cane/walker - Exam General Appearance: NAD, awake alert Eye: anicteric sclera ENT: normocephalic atraumatic, moist mucosa Neck: supple, symmetric, no lymphadenopathy Heart: no murmur, no gallops, no rubs, normal peripheral pulses Respiratory: CTAB, no wheezes, no rales, no ronchi, normal chest expansion, no tachypnea Gastrointestinal: soft, non-tender, no guarding, no rigidity Extremities: 1+ LE edema Extremities - other findings: +1 UE edema bilaterally. Right leg amputation Skin: normal turgor (Skin healing without cellulitis or signs of infection) Skin - other findings: right arm distal ventral radial AV fistula with palpable thrill. Neurological: cranial nerve grossly intact, no focal deficits Musculoskeletal: generalized weakness Psychiatric: normal affect, normal behavior, A&O x 3 Hospitalist Results - Labs Result Diagrams: 09/26/19 13:39 09/26/19 13:39 Lab results: WBC 10.9 thou/uL (4.8-10.8) H 09/26/19 13:39 Hgb 8.7 g/dL (12.0-16.0) L 09/26/19 13:39 Hct 25.6 % (36.0-47.0) L 09/26/19 13:39 MCV 91.0 fL (78.0-98.0) 09/26/19 13:39 Plt Count 267 thou/uL (130-400) 09/26/19 13:39 Neutrophils % 72.9 % (42.0-75.0) 09/26/19 13:39 Sodium 131 mmol/L (136-145) L 09/26/19 13:39 Potassium 4.5 mmol/L (3.5-5.1) 09/26/19 13:39 Chloride 96 mmol/L (98-107) L 09/26/19 13:39 Carbon Dioxide 24 mmol/L (23-31) 09/26/19 13:39 BUN 22 mg/dL (9.8-20.1) H 09/26/19 13:39 Creatinine 5.41 mg/dL (0.6-1.1) H 09/26/19 13:39 Glucose 262 mg/dL (80-115) H 09/26/19 13:39 Lactic Acid 1.2 mmol/L (0.5-2.2) 09/26/19 13:39 Calcium 7.7 mg/dL (7.8-10.44) L 09/26/19 13:39 Total Bilirubin 0.3 mg/dL (0.2-1.2) 09/26/19 13:39 AST 16 U/L (5-34) 09/26/19 13:39 ALT 10 U/L (8-55) 09/26/19 13:39 Alkaline Phosphatase 116 U/L (40-110) H 09/26/19 13:39 CK-MB (CK-2) 1.5 ng/mL (0-6.6) 09/26/19 13:39 Troponin I 1.685 ng/mL (< 0.028) H* 09/26/19 16:57 Serum Total Protein 6.0 g/dL (6.0-8.3) 09/26/19 13:39 Albumin 2.8 g/dL (3.4-4.8) L 09/26/19 13:39 Lipase 5 U/L (8-78) L 09/26/19 13:39 - Radiology Interpretation Other Status: image reviewed by il Hospitalist H&P A/P - Problem (1) Chest pain Code(s): R07.9 - CHEST PAIN, UNSPECIFIED Status: Acute (2) CAD (coronary artery disease) Code(s): I25.10 - ATHSCL HEART DISEASE OF [place] CORONARY ARTERY W/O ANG PCTRS Status: Acute (3) IDDM (insulin dependent diabetes mellitus) Code(s): XXV0293 - Status: Acute (4) HTN (hypertension) Code(s): I10 - ESSENTIAL (PRIMARY) HYPERTENSION Status: Acute (5) HLD (hyperlipidemia) Code(s): E78.5 - HYPERLIPIDEMIA, UNSPECIFIED Status: Acute (6) ESRD (end stage renal disease) Code(s): N18.6 - END STAGE RENAL DISEASE Status: Acute (7) Amputated right leg Code(s): S88.911A - COMPLETE TRAUMATIC AMPUTATION OF R LOW LEG, LEVEL UNSP, INIT Status: Acute - Plan Plan: Plan: admit to medical unit with telemetry cardiology consultation, recommendations appreciated nephrology consultation, recommendations appreciated trend cardiac enzymes morphine, oxygen, nitrates, aspirin patient has been compliant with antiplatelet therapy Plavix and aspirin, without missing any doses low clinical suspicion for acute stent thrombosis right arm AV fistula appears to be healing well without signs of acute infection. There is a palpable thrill long and short acting insulin for glucose control blood pressure control continue other home indications as able G.I. prophylaxis DVT prophylaxis
[2019-09-26 18:27] VITALS: BMI 26.1
--- NOTE | 2019-09-26 19:12 | RAD ---
RADIOGRAPH CHEST 1 VIEW: DATE: 09/26/2019 TIME: 6:36 PM HISTORY: 64-year-old female with dyspnea COMPARISON: 08/31/2019 FINDINGS: The previously demonstrated pulmonary densities and left pleural effusion have improved. Inspiration is deeper on the current study. There is residual mild infiltrate at right medial lung ba se and to a slightly greater degree throughout the left lung base, with residual left pleural effusion. Right IJ double lumen hemodialysis catheter remains in SVC. No cardiomegaly or pneumothorax . Mid and upper lung zones are clear now. IMPRESSION: 1. Interval improvement in the previously demonstrated fluid volume overload or congestive heart fail ure. 2. Mild residual pulmonary densities at the bilateral lung bases, and residual left pleural effusion 3. No cardiomegaly.
[2019-09-26 20:06] LABS: Troponin I 1.688 ng/mL (< 0.028)
--- NOTE | 2019-09-26 20:52 | CON ---
DATE OF CONSULTATION: 09/26/2019 CONSULTING PHYSICIAN: Justin Diaz DO REASON FOR CONSULTATION: End-stage renal disease evaluation. REASON FOR ADMISSION: Hand swelling and chest pain. HISTORY OF PRESENT ILLNESS: This is a 64-year-old female with history of end-stage renal disease, hypertension, and hyperlipidemia, came to the hospital with chest pain and access arm swelling. The patient recently had access and is complaining of swelling all over her arm and also pain. No fever or chills. PAST MEDICAL HISTORY: Positive for coronary artery disease, hypertension, hyperlipidemia, and end-stage renal disease. PAST SURGICAL HISTORY: Right leg amputation and right arm fistula placement. HOME MEDICATIONS: Reviewed. ALLERGIES: CIPROFLOXACIN. SOCIAL HISTORY: No smoking, alcohol, or drugs. FAMILY HISTORY: No history of kidney disease. REVIEW OF SYSTEMS: The following complete review of systems was negative, unless otherwise mentioned in the HPI or below: Constitutional: Weight loss or gain, ability to conduct usual activities. Skin: Rash, itching. Eyes: Double vision, pain. ENT/Mouth: Nose bleeding, neck stiffness, pain, tenderness. Cardiovascular: Palpitations, dyspnea on exertion, orthopnea. Respiratory: Shortness of breath, wheezing, cough, hemoptysis, fever or night sweats. Gastrointestinal: Poor appetite, abdominal pain, heartburn, nausea, vomiting, constipation, or diarrhea. Genitourinary: Urgency, frequency, dysuria, nocturia. Musculoskeletal: Pain, swelling. Neurologic/Psychiatric: Anxiety, depression. Allergy/Immunologic: Skin rash, bleeding tendency. Negative was supple. PHYSICAL EXAMINATION: GENERAL: This is a well-built female, in no apparent distress. VITAL SIGNS: Temperature 98.3, pulse 88, respirations 16, and blood pressure 137/82. HEENT: Atraumatic and normocephalic. Oral mucosa is moist. NECK: Supple. CV: S1 and S2. Regular rate and rhythm. RESPIRATORY: Clear. GASTROINTESTINAL: Abdomen is soft. MUSCULOSKELETAL: 1+ edema. DERMATOLOGIC: No skin rash. NEUROLOGIC: Alert and awake. PSYCHIATRIC: Mood and affect normal. Right arm with swelling present on the entire arm. Right arm fistula seems to be maturing well. LABORATORY DATA: Hemoglobin is 8.7. Potassium is 4.5, BUN is 22, and creatinine is 5.4. ASSESSMENT AND PLAN: 1. End-stage renal disease. Plan is to continue on dialysis Friday, Friday, and Friday. We will arrange dialysis. 2. Elevated BNP. We will remove fluid. 3. Elevated troponin. 4. Hyponatremia. Limit fluid intake. 5. Anemia. We will add Epogen with dialysis. 6. Hypoalbuminemia. 7. Edema, controlled. 8. Access arm swelling. We will consult Dr. Bentley in the morning to evaluate. Most likely having central stenosis and she is having whole arm swelling. We will follow. Thank you for the consult. Job ID: [id number]
[2019-09-26] MEDS: Insulin Glargine 15 UNITS in Pre-Filled Syringe 1 EACH SC SCH (21:25)
[2019-09-26] MEDS: Famotidine 20 MG TAB PO SCH (21:26)
[2019-09-26] MEDS: HYDROcodone/Acetaminophen 5/325 mg Tablet PO PRN (21:32)
[2019-09-27 04:40] LABS: #Eosinphils 0.1 thou/uL (0.0-0.7); #Lymphocytes 2.2 thou/uL (1.20-3.40); #Monocytes 0.8 thou/uL (0.11-0.59); #Neutrophils 4.8 thou/uL (1.40-6.50); %Basophils 0.6 % (0.0-1.0); %Eosinophils 1.4 % (0.0-10.0); %Lymphocytes 27.5 % (21.0-51.0); %Monocytes 10.3 % (0.0-10.0); %Neutrophils 60.2 % (42.0-75.0); Hemoglobin 9.1 g/dL (12.0-16.0); Mean Corpuscular HGB CONC 33.8 g/dL (32.0-36.0); Mean Corpuscular Volume 91.7 fL (78.0-98.0); Mean Platelet Volume 7.8 fL (7.4-10.4); Platelet Count 236 thou/uL (130-400); RBC Distribution Width 13.4 % (11.5-14.5); Red Blood Cell (RBC) Count 2.92 mill/uL (4.20-5.40)
[2019-09-27 04:55] LABS: Anion Gap 13 mmol/L (10-20); BUN (Urea Nitrogen) 28 mg/dL (9.8-20.1); Calc. Creatinine Clearance 10 mL/min (70-130); Calcium 7.9 mg/dL (7.8-10.44); Carbon Dioxide 27 mmol/L (23-31); Chloride 95 mmol/L (98-107); Estimated GFR-MDRD 7; Glucose 101 mg/dL (80-115); Potassium 4.2 mmol/L (3.5-5.1); Sodium 131 mmol/L (136-145)
[2019-09-27] MEDS: HYDROcodone/Acetaminophen 5/325 mg Tablet PO PRN ×4 (08:05→21:24)
[2019-09-27] MEDS ORDERED: Atorvastatin Calcium 40 MG TAB PO SCH (09:00)
[2019-09-27 09:53] LABS: Critical Call Chem Troponin I RESULT DECREASING
--- NOTE | 2019-09-27 11:13 | PRG ---
DATE OF SERVICE: 09/27/2019 SUBJECTIVE: A 64-year-old female being seen for end-stage renal disease. The patient denied nausea, vomiting, or chest pain. OBJECTIVE: GENERAL: The patient is awake and alert. VITAL SIGNS: Afebrile, pulse 80, breathing at 16, and blood pressure 130/62. HEENT: Head normocephalic and atraumatic. Eyes intact, no ulcers. Nose intact, no ulcers. Ears intact, no ulcers. NECK: Supple. No JVD. CHEST: Symmetrical and clear. CARDIOVASCULAR: Shows S1 and S2, no rub, no murmur. GASTROINTESTINAL: Abdomen is soft, bowel sounds positive. EXTREMITIES: Show no edema or ulcers. SKIN: Shows no rash or petechiae. MUSCULOSKELETAL: Shows no joint swelling or stiffness. GENITOURINARY: Shows no Lara or CVA tenderness. NEUROLOGIC: Motor intact. Cranial nerves intact. LABORATORY DATA: Reviewed. ASSESSMENT AND PLAN: 1. Stage 6 chronic kidney disease. Continue hemodialysis. 2. Hypertension, stable. 3. Anemia, stable. 4. Medications based on glomerular filtration rate are appropriate. Job ID: [id number]
[2019-09-27] MEDS: EPOETIN ALFA-EPBX (ESRD) 10,000 UNIT/ML VIAL IVP SCH (11:30)
--- NOTE | 2019-09-27 11:44 | CON ---
DATE OF CONSULTATION: 09/27/2019 INDICATIONS FOR CONSULTATION: A 64-year-old female with right arm pain after a fistula placement, radiating to the left arm with a history of significant coronary artery disease, who has undergone angioplasty and stent placement on . She was admitted to the hospital after she complained of some chest pain, which radiated originally from the right arm across the chest to the left arm. She has also shortness of breath. She has end-stage renal disease on hemodialysis. HISTORY OF PRESENT ILLNESS: This is a very unfortunate 64-year-old female, suffered a myocardial infarction back I believe in 2016. She had 2 stents placed at that time. She has had no bypass surgery. She has been followed by switch cleaner out of [place]. She recently apparently had a stress test, which found to be abnormal. She then underwent cardiac catheterization last and another stent was placed into the left anterior descending artery. She was implanted with a 2.75 x 18 mm Xience stent to the left anterior descending artery. She has been complaining of pain since her fistula was placed recently in the right arm with swelling and pain in the arm and was presented here and had slight abnormal cardiac enzymes, which most likely due to the previous stent placement on . Her troponin-I was slightly elevated at 1.5, increased up to 1.68, and is now decreased back down to 1.49. She denies any chest pain or any left arm pain at this time. She said the left arm pain and chest discomfort resolved shortly after she was in the hospital and has had no further chronic complaints, but still continues to have pain in the right arm. She does have renal failure with a creatinine of 6.2, which makes it very difficult for the troponin-I to dissipate. At this time, she appears to be relatively stable. She did have an echocardiogram performed in August of this year, which showed ejection fraction of 35% to 40% with moderate mitral valve regurgitation and a very small pericardial effusion. At this time, she is stable. She is undergoing dialysis and has no complaints except for the right arm pain. She was complaining of shortness of breath prior to undergoing the dialysis about a couple of days ago, most likely due to volume overload. Her EKG shows a normal sinus rhythm with nonspecific ST-segment changes. She does have some T-wave inversions in I and aVL. She has what appears to be an old anterior myocardial infarction with decreased R-wave progression in V1 through V3, but there were no acute ST-segment changes noted. She has had LASIK surgery. PAST MEDICAL HISTORY: Significant for: 1. Coronary artery disease. 2. Myocardial infarction. 3. Angioplasty and stent placement in 2017 and again just about 4 days ago. 4. She also has hypertension. 5. Dyslipidemia. 6. End-stage renal disease, on hemodialysis. 7. She has had a right leg amputation. 8. She has had a right arm fistula placed. 9. She has had trauma to the left ankle and surgical repair. 10. She has insulin-dependent diabetes. MEDICATIONS: At home, include: 1. Aspirin. 2. Plavix. 3. Coreg. 4. Insulin. 5. Lipitor. ALLERGIES: SHE IS ALLERGIC TO CIPROFLOXACIN. SOCIAL HISTORY: No history of alcohol or tobacco abuse. FAMILY HISTORY: Noncontributory for any early heart disease. REVIEW OF SYSTEMS: HEENT: She has had LASIK surgery. She has no complaints at this time. PULMONARY: She complains of shortness of breath at previous dialysis. After dialysis, it is better. GI: She had no GI complaints. : She had no complaints. She has been on dialysis since 08/2019. EXTREMITIES: She complains of right arm pain as noted above. She has had some amputation of the right AKA. She has also some surgery on the left foot, but she is able to ambulate with a prosthesis or a walker. NEUROLOGIC: No history of seizures or syncope. PHYSICAL EXAMINATION: GENERAL: A well-developed, well-nourished female who is in no acute distress at this time. She is undergoing dialysis. VITAL SIGNS: Blood pressure is 132/62, heart rate is 80 and regular, she is afebrile, and respiratory rate 17. HEENT: Showed the head to be normocephalic and atraumatic. Carotid pulses are present. I did not hear any bruits. CHEST: Actually clear. She may have some mild rales in the left side, left base, otherwise appears to be clear to auscultation. CARDIOVASCULAR: Regular rate and rhythm with normal S1 and S2. I do not hear any significant S3 or S4. There were no significant murmurs, heaves, thrills, bruits, or rubs. ABDOMEN: Soft and nontender. Positive bowel sounds are present. EXTREMITIES: No clubbing or cyanosis. She has a right AKA. She has a deformity of the left foot after surgery. She also has a right anterior chest wall hemodialysis tunneled catheter in place. The right arm is edematous after the previous shunt has been placed. There is also evidence of a recent AV fistula placement on the right arm. NEUROLOGIC: She appears to be fully intact. She has normal strength and tone for someone of her age. SKIN: Warm and dry. LABORATORY DATA: Sodium 131, potassium 4.2, BUN was 28 with a creatinine of 6.2, blood sugar was anywhere between 237 to 114. Her troponin-I as noted above is now 1.49. WBC is 8, hemoglobin 9.1, hematocrit 26.8, and platelet count was 236,000. IMPRESSION: 1. Possible non ST-segment elevation myocardial infarction, type 2, versus this may be the residual left over from her angioplasty and stent placement, which was performed on in [place]. She will be a very slow dissipation of the cardiac enzymes with a troponin I if there is a slow leak due to the severe end-stage renal disease. At this time, I will continue her present medications. Continue to treat her medically. There is no indication she needs to undergo a cardiac catheterization at this time. Repeat the echocardiogram to ensure the left ventricular systolic function has not deteriorated further. 2. Moderate decrease in left ventricular systolic function by previous echocardiogram. Ejection fraction 35% to 40% due to previous myocardial infarction. 3. Coronary artery disease with previous myocardial infarction and previous stent placement in 2017. 4. End-stage renal disease, will be dealt with by the primary care service. 5. Recent right arm fistula placement with pain and discomfort. This will also be dealt with by the surgery program or the fashion consultant. 6. Diabetes, this will be dealt with by the primary care service. 7. Hypertension. She is on reasonable control at this time. We will continue her medicines. 8. Dyslipidemia. We will continue her statin medications. We would resume her home medications and we will continue to follow her. It appears that most of her issues started because of pain in the right arm, but otherwise I do not see any significant acute problems that will need to undergo further intervention at this time. In the future, she will follow up with her switch cleaner in [place], he is out of [place], and will continue her care with this physician. Further recommendations will follow if there are any changes in the echocardiogram or should she develop further chest pain or EKG changes or elevation of cardiac enzymes. Job ID: [id number]
[2019-09-27] MEDS ORDERED: Heparin 10,000 UNITS/ 10 ML VIAL ONE (13:03)
--- NOTE | 2019-09-27 13:41 | PDOC.HOSPP ---
- Subjective Subjective: Seen and examined. Denies chest pain. Still with arm pain, minimal swelling. Breathing comfortably on room air. I later saw her again on hemodialysis and she is tolerating without chest discomfort or other problems. - Objective Vital Signs & Weight: Vital Signs (12 hours) Temp Pulse Resp BP Pulse Ox 09/27/19 07:44 18 142/69 H 98 09/27/19 04:06 97.9 F 80 17 132/62 97 Weight Weight 156 lb 14.4 oz I&O: 09/26/19 09/27/19 09/28/19 06:59 06:59 06:59 Intake Total 120 Balance 120 Result Diagrams: 09/27/19 03:45 09/27/19 03:45 Additional Labs: Accuchecks 09/27/19 09/26/19 05:19 20:31 POC Glucose 114 H 237 H Radiology Reviewed by me: Yes Hospitalist ROS - Review of Systems All other systems reviewed; all pertinent +/- noted in HPI/Subj - Medication Medications: Active Medications Generic Name Dose Route Start Last Admin Trade Name Freq PRN Reason Stop Dose Admin Hydrocodone Bitart/Acetaminophen 1 tab 09/26/19 15:47 09/27/19 13:19 [place] 5/325 PO 1 tab Q4H PRN Administration Moderate Pain (4-6) Epoetin Tong-epbx 10,000 unit 09/27/19 09:00 09/27/19 11:30 Retacrit IVP 10,000 unit MoWeFr@0900 ROLAND Administration Famotidine 20 mg 09/26/19 21:00 09/26/19 21:26 Pepcid PO 20 mg Q24HR ROLAND Administration Insulin Glargine 15 units/ 0.15 mls @ 1 mls/hr 09/26/19 21:00 09/26/19 21:25 Miscellaneous Medication SC 0.15 mls BID ROLAND Administration - Exam General Appearance: NAD Eye: PERRL, anicteric sclera ENT: normocephalic atraumatic, moist mucosa Neck: supple, symmetric, no lymphadenopathy Heart: no murmur, no gallops, no rubs Respiratory: CTAB, no wheezes, no ronchi, normal chest expansion Gastrointestinal: soft, non-tender, no guarding, no rigidity Extremities: 1+ LE edema Extremities - other findings: Right UE edema +1 Skin: no rashes Neurological: cranial nerve grossly intact, no focal deficits Musculoskeletal: generalized weakness Psychiatric: normal affect, normal behavior, A&O x 3 Hosp A/P (1) Chest pain Code(s): R07.9 - CHEST PAIN, UNSPECIFIED Status: Acute (2) CAD (coronary artery disease) Code(s): I25.10 - ATHSCL HEART DISEASE OF [place] CORONARY ARTERY W/O ANG PCTRS Status: Acute (3) IDDM (insulin dependent diabetes mellitus) Code(s): SEC5305 - Status: Acute (4) HTN (hypertension) Code(s): I10 - ESSENTIAL (PRIMARY) HYPERTENSION Status: Acute (5) HLD (hyperlipidemia) Code(s): E78.5 - HYPERLIPIDEMIA, UNSPECIFIED Status: Acute (6) ESRD (end stage renal disease) Code(s): N18.6 - END STAGE RENAL DISEASE Status: Acute (7) Amputated right leg Code(s): S88.911A - COMPLETE TRAUMATIC AMPUTATION OF R LOW LEG, LEVEL UNSP, INIT Status: Acute - Plan Plan: medical unit with telemetry cardiology consultation, recommendations appreciated general surgery consultation, recommendations appreciated nephrology consultation, recommendations appreciated indeterminate cardiac enzymes, impaired clearance secondary to end-stage renal disease echocardiogram morphine, oxygen, nitrates, aspirin patient has been compliant with antiplatelet therapy with Plavix and aspirin, without missing doses. Low clinical suspicion for acute stent thrombosis right arm AV fistula appears to be healing well, surgery called to reevaluate long and short acting insulin for glucose control blood pressure control continue other home medications as indicated G.I. prophylaxis DVT prophylaxis
[2019-09-27] MEDS: Clopidogrel Bisulfate 75 MG TAB PO SCH (13:47)
[2019-09-27] MEDS: Aspirin 81 mg Enteric Coated Tablet PO SCH (13:47)
[2019-09-27] MEDS: Carvedilol 6.25 MG TAB PO SCH ×2 (13:48→17:11)
[2019-09-27] MEDS: Insulin Glargine 15 UNITS in Pre-Filled Syringe 1 EACH SC SCH ×2 (13:48→21:22)
[2019-09-27] MEDS ORDERED: traMADol HCl 50 MG TAB PO PRN (17:15)
[2019-09-27] MEDS: Atorvastatin Calcium 40 MG TAB PO SCH (20:17)
[2019-09-27] MEDS: Famotidine 20 MG TAB PO SCH (20:18)
[2019-09-28] MEDS: Aspirin 81 mg Enteric Coated Tablet PO SCH (08:45)
[2019-09-28] MEDS: Carvedilol 6.25 MG TAB PO SCH ×2 (08:45→16:55)
[2019-09-28] MEDS: Clopidogrel Bisulfate 75 MG TAB PO SCH (08:45)
[2019-09-28] MEDS: Insulin Glargine 15 UNITS in Pre-Filled Syringe 1 EACH SC SCH ×2 (08:48→21:39)
--- NOTE | 2019-09-28 09:47 | PRG ---
DATE OF SERVICE: 09/28/2019 SUBJECTIVE: A 64-year-old female being seen for end-stage renal disease. The patient denied any nausea, vomiting, or chest pain. OBJECTIVE: GENERAL: The patient is awake and alert. VITAL SIGNS: Afebrile, pulse 75, breathing at 16, and blood pressure 113/56. HEENT: Head normocephalic and atraumatic. Eyes intact, no ulcers. Nose intact, no ulcers. Ears intact, no ulcers. NECK: Supple. No JVD. CHEST: Symmetrical and clear. CARDIOVASCULAR: Shows S1 and S2, no rub, no murmur. GASTROINTESTINAL: Abdomen is soft, bowel sounds positive. EXTREMITIES: Right arm shows swelling. SKIN: Shows no rash or petechiae. MUSCULOSKELETAL: Shows no joint swelling or stiffness. GENITOURINARY: Shows no Lara or CVA tenderness. NEUROLOGIC: Motor intact. Cranial nerves intact. LABORATORY DATA: Reviewed. ASSESSMENT AND PLAN: 1. Stage 6 chronic kidney disease. Plan dialysis per schedule. 2. Hypertension, stable. 3. Anemia, stable. 4. Left arm swelling. I would recommend Surgery consultation. Job ID: [id number]
--- NOTE | 2019-09-28 10:31 | CT ---
Head CT without contrast 09/28/2019: Comparison: None HISTORY: Left arm numbness, hand numbness TECHNIQUE: Axial CT imaging at 5 mm intervals from vertex through skull base without contrast FINDINGS: The imaged paranasal sinuses and mastoid air cells are well-aerated. No displaced calvarial fracture. No intracranial hemorrhage, midline shift, or mass effect. IMPRESSION: No intracranial hemorrhage. If there is clinical concern for acute infarction, follow-up brain MRI suggested.
--- NOTE | 2019-09-28 11:19 | ULT ---
Carotid duplex sonogram HISTORY: Vascular disease. TIA. Left arm weakness. FINDINGS: Right: Minimal plaque. Color and spectral Doppler evaluation, peak systolic velocity of 88 cm/s, and IC to CC ratio of 1.1 suggest no hemodynamically significant stenosis within the extracranial right ICA. Antegrade flow within the vertebral artery. Left: Mild plaque. Color and spectral Doppler evaluation, peak systolic velocity of 67 cm/s, and IC t o CC ratio 0.8 suggest no hemodynamically significant stenosis within the extracranial left ICA. Antegrade flow within the vertebral artery. IMPRESSION: Atherosclerosis. No sonographic evidence of significant extracranial ICA stenosis.
[2019-09-28] MEDS: HYDROcodone/Acetaminophen 5/325 mg Tablet PO PRN (14:37)
--- NOTE | 2019-09-28 15:33 | PDOC.CPN ---
- Subjective Date: 09/28/19 Time: 15:37 Interval history: The pt seen and examined. No overnight events. No cardiac complaints. - Objective Allergies/Adverse Reactions: Allergies Allergy/AdvReac Type Severity Reaction Status Date / Time ciprofloxacin [From Cipro] Allergy Intermediate Hives Verified 09/26/19 18:08 Visit Medications: Current Medications Acetaminophen (Tylenol) 650 mg PO Q4H PRN PRN Reason: Headache/Fever/Mild Pain (1-3) Hydrocodone Bitart/Acetaminophen ([place] 5/325) 1 tab PO Q4H PRN PRN Reason: Moderate Pain (4-6) Last Admin: 09/28/19 14:37 Dose: 1 tab Albuterol/Ipratropium (Duoneb) 3 ml NEB Q4H PRN PRN Reason: SOB &/or Wheezing Aspirin (Ecotrin) 81 mg PO DAILY [facility] Last Admin: 09/28/19 08:45 Dose: 81 mg Atorvastatin Calcium (Lipitor) 40 mg PO 2100 [facility] Last Admin: 09/27/19 20:17 Dose: 40 mg Benzonatate (Tessalon) 100 mg PO Q4H PRN PRN Reason: Cough Bisacodyl (Dulcolax) 10 mg PO DAILYPRN PRN PRN Reason: Constipation Carvedilol (Coreg) 12.5 mg PO BID[facility] Last Admin: 09/28/19 08:45 Dose: 12.5 mg Clopidogrel Bisulfate (Plavix) 75 mg PO DAILY [facility] Last Admin: 09/28/19 08:45 Dose: 75 mg Dextrose/Water (Dextrose 50%) 25 gm SLOW IVP PRN PRN PRN Reason: Hypoglycemia Diphenhydramine HCl (Benadryl) 25 mg PO Q6H PRN PRN Reason: Itching & Insomnia Docusate Sodium (Colace) 100 mg PO BIDPRN PRN PRN Reason: Constipation Epoetin Tong-epbx (Retacrit) 10,000 unit IVP MoWeFr@0900 [facility] Last Admin: 09/27/19 11:30 Dose: 10,000 unit Ergocalciferol (Drisdol) 1.25 mg PO Q7D [facility] Famotidine (Pepcid) 20 mg PO Q24HR [facility] Last Admin: 09/27/19 20:18 Dose: 20 mg Glucagon (Glucagon) 1 mg IM PRN PRN PRN Reason: Hypoglycemia Dextrose/Water (D5w) 1,000 mls @ 0 mls/hr IV .Q0M PRN PRN Reason: Hypoglycemia Insulin Glargine 15 units/ (Miscellaneous Medication) 0.15 mls @ 1 mls/hr SC BID [facility] Last Admin: 09/28/19 08:48 Dose: Not Given Insulin Human Lispro (Humalog) 0 units SC .MODERATE SLIDING SC PRN PRN Reason: Moderate Correctional Scale Labetalol HCl (Normodyne) 10 mg SLOW IVP Q4H PRN PRN Reason: SBP Greater Than 180 Loperamide HCl (Imodium) 2 mg PO PRN PRN PRN Reason: Diarrhea/Loose Stools Melatonin (Melatonin) 3 mg PO HSPRN PRN PRN Reason: Insomnia Morphine Sulfate (Morphine) 2 mg SLOW IVP Q4H PRN PRN Reason: Moderate to Severe Pain (6-10) Last Admin: 09/28/19 00:05 Dose: 2 mg Nitroglycerin (Nitrostat) 0.4 mg SL Q5MIN PRN PRN Reason: Chest Pain Ondansetron HCl (Zofran Odt) 4 mg PO Q6H PRN PRN Reason: Nausea/Vomiting Ondansetron HCl (Zofran) 4 mg IVP Q6H PRN PRN Reason: Nausea/Vomiting Sodium Chloride (Flush - Normal Saline) 10 ml IVF Q12HR [facility] Last Admin: 09/28/19 08:46 Dose: 10 ml Sodium Chloride (Flush - Normal Saline) 10 ml IVF PRN PRN PRN Reason: Saline Flush Tramadol HCl (Ultram) 50 mg PO Q12H PRN PRN Reason: Moderate to Severe Pain (6-10) Last Admin: 09/27/19 20:15 Dose: 50 mg Vital Signs & Weight: Vital Signs Temp Pulse Resp BP BP Pulse Ox 09/28/19 11:37 98.6 F 83 12 137/66 100 09/28/19 08:37 97.6 F 80 14 156/74 H 98 09/28/19 04:19 98.2 F 73 18 113/56 L 94 L Weight 156 lb 14.4 oz - Physical Exam General: alert & oriented x3 HEENT: mucus membranes moist Neck: supple neck Cardiac: regular rate and rhythm, S1/S2 Lungs: clear to auscultation, decreased breath sounds - Labs Result Diagrams: 09/27/19 03:45 09/27/19 03:45 Troponin/CKMB CK-MB (CK-2) 1.5 ng/mL (0-6.6) 09/26/19 13:39 Troponin I 1.490 ng/mL (< 0.028) H* 09/27/19 09:08 - Telemetry Sinus rhythms and dysrhythmias: sinus rhythm - Assessment/Plan Assessment/Plan: 1. Elevated trop 2/2 s/p Stent placement on 09/23/2019 2. CAD with hx of stent placement in 2017 and s/p NOE in LAD on 09/23/2019 - on Coreg, ASA, Plavix, and Statin 3. HTN - stable 4. IDDM - 5. HLD - 6. ESRD - 7. hx of Rt LELAND BUENROSTRO reviewed * Echo on 09/27/2019 with EF 45-50%, mild MR and TR * The pt will f/u with [facility] [employer] in [place], [place] Pt. seen and eval. by me. I agree with the A/P by the [employer]. She is feeling better today and the right arm is less tender and swollen. She still c/o'd of tingling and numbness in the left hand/arm. This is non-cardiac. Will recheck troponin - I but she is not having discomfort or significant EKG changes. Chest clear. RRR. no edema. Can be d/c'd from a cardiac standpoint. luis
--- NOTE | 2019-09-28 17:16 | PRG ---
DATE OF SERVICE: 09/28/2019 SUBJECTIVE: Ms. Smith had a right arm-wrist Wiliam fistula, performed by Dr. Winslow a month ago, she has had a left radial artery harvest, she had left arm pain, presented to the hospital concerned about that. I have been asked to see her regarding her right arm Wiliam fistula. The patient reports that she did have pain also in her right arm from her hand to her shoulder. This has since dissipated after she got morphine last night. The patient has a warm right hand, good hand movement, good hand strength. She has a good thrill and bruit in her right arm fistula. She has a palpable radial artery beyond the arterial inflow to the fistula. She has mild edema of her right arm and hand. At this point, there are no signs of complications from her vascular access surgery. I would recommend follow up with Dr. Winslow in 2 to 3 weeks. She should continue to exercise her hand and arm and use it unrestricted. The swelling will resolve with time. The pain in her right arm is secondary to another etiology, not her access. Job ID: [id number]
--- NOTE | 2019-09-28 21:05 | PDOC.HOSPP ---
- Subjective Encounter Date: 09/28/19 Encounter Time: 08:30 Subjective: in bed, flight of ideas, reports L arm numbness which began last night and did not inform nursing, no chest pain/shortness of breath/nausea/weakness/tingling. - Objective Vital Signs & Weight: Vital Signs (12 hours) Temp Pulse Resp BP BP BP Pulse Ox 09/28/19 16:55 118/59 L 09/28/19 15:43 99.3 F 92 12 132/63 93 L 09/28/19 11:37 98.6 F 83 12 137/66 100 Weight Weight 156 lb 14.4 oz I&O: 09/27/19 09/28/19 09/29/19 06:59 06:59 06:59 Intake Total 120 480 720 Output Total 2000 Balance 120 -1520 720 Result Diagrams: 09/27/19 03:45 09/27/19 03:45 Additional Labs: Accuchecks 09/28/19 09/28/19 09/28/19 16:39 11:13 05:33 POC Glucose 138 H 88 76 Hospitalist ROS - Medication Medications: Active Medications Generic Name Dose Route Start Last Admin Trade Name Freq PRN Reason Stop Dose Admin Hydrocodone Bitart/Acetaminophen 1 tab 09/26/19 15:47 09/28/19 14:37 [place] 5/325 PO 1 tab Q4H PRN Administration Moderate Pain (4-6) Aspirin 81 mg 09/27/19 09:00 09/28/19 08:45 Ecotrin PO 81 mg DAILY ROLAND Administration Atorvastatin Calcium 40 mg 09/27/19 21:00 09/27/19 20:17 Lipitor PO 40 mg 2100 ROLAND Administration Carvedilol 12.5 mg 09/26/19 18:35 09/28/19 16:55 Coreg PO 12.5 mg BID-WM ROLAND Administration Clopidogrel Bisulfate 75 mg 09/27/19 09:00 09/28/19 08:45 Plavix PO 75 mg DAILY ROLAND Administration Epoetin Tong-epbx 10,000 unit 09/27/19 09:00 09/27/19 11:30 Retacrit IVP 10,000 unit MoWeFr@0900 ROLAND Administration Famotidine 20 mg 09/26/19 21:00 09/27/19 20:18 Pepcid PO 20 mg Q24HR ROLAND Administration Insulin Glargine 15 units/ 0.15 mls @ 1 mls/hr 09/26/19 21:00 09/28/19 08:48 Miscellaneous Medication SC Not Given BID ROLAND Morphine Sulfate 2 mg 09/26/19 15:51 09/28/19 00:05 Morphine SLOW IVP 2 mg Q4H PRN Administration Moderate to Severe Pain (6-10) Sodium Chloride 10 ml 09/27/19 21:00 09/28/19 08:46 Flush - Normal Saline IVF 10 ml Q12HR ROLAND Administration Tramadol HCl 50 mg 09/27/19 17:15 09/27/19 20:15 Ultram PO 50 mg Q12H PRN Administration Moderate to Severe Pain (6-10) - Exam General Appearance: NAD, awake alert Eye: PERRL, anicteric sclera ENT: normocephalic atraumatic, no oropharyngeal lesions, moist mucosa Neck: supple Heart: RRR, no murmur, no gallops, no rubs, normal peripheral pulses Respiratory: CTAB, no wheezes, no rales, no ronchi, normal chest expansion, no tachypnea, normal percussion Gastrointestinal: soft, non-tender, non-distended, normal bowel sounds, no palpable masses, no hepatomegaly, no splenomegaly, no bruit Extremities: no cyanosis, no clubbing, no edema Extremities - other findings: 1+_ pedal and RUE edema Skin: normal turgor, no lesions, no rashes Neurological: cranial nerve grossly intact, normal sensation to touch, no weakness, no focal deficits, no new deficit Musculoskeletal: normal tone, normal strength, no muscle wasting Psychiatric: normal affect, normal behavior, A&O x 3 Hosp A/P - Plan medical unit with telemetry cardiology consultation, recommendations appreciated general surgery consultation, recommendations appreciated nephrology consultation, recommendations appreciated indeterminate cardiac enzymes, impaired clearance secondary to end-stage renal disease echocardiogram morphine, oxygen, nitrates, aspirin patient has been compliant with antiplatelet therapy with Plavix and aspirin, without missing doses. Low clinical suspicion for acute stent thrombosis right arm AV fistula appears to be healing well, surgery called to reevaluate - > follow up as outpatient in 2-3 weeks long and short acting insulin for glucose control blood pressure control continue other home medications as indicated G.I. prophylaxis DVT prophylaxis # L arm numbness - cardiology eval appreciated, noncardiac in characted, CT head and carotid duplex performed without acute findings, no focal deficits on exam, patient refused MRI today as well. will monitor closely.
[2019-09-28] MEDS: Atorvastatin Calcium 40 MG TAB PO SCH (21:40)
[2019-09-28] MEDS: Famotidine 20 MG TAB PO SCH (21:47)
[2019-09-29] MEDS ORDERED: Heparin 10,000 UNITS/ 10 ML VIAL ONE (09:52)
--- NOTE | 2019-09-29 10:07 | PDOC.CPN ---
- Subjective Date: 09/29/19 Time: 10:00 - Review of Systems General: reports: weight/appetite/sleep changes Respiratory: reports: cough, congestion, shortness of breath Cardiovascular: reports: chest pain, palpitation Gastrointestinal: reports: nausea, vomiting Musculoskeletal: reports: pain, tenderness, swelling (she still complains of tingling and discomfort in the left hand,wrist. The right arm is better but still painful and has mild swelling.) - Objective Allergies/Adverse Reactions: Allergies Allergy/AdvReac Type Severity Reaction Status Date / Time ciprofloxacin [From Cipro] Allergy Intermediate Hives Verified 09/26/19 18:08 Visit Medications: Current Medications Acetaminophen (Tylenol) 650 mg PO Q4H PRN PRN Reason: Headache/Fever/Mild Pain (1-3) Hydrocodone Bitart/Acetaminophen ([place] 5/325) 1 tab PO Q4H PRN PRN Reason: Moderate Pain (4-6) Last Admin: 09/28/19 14:37 Dose: 1 tab Albuterol/Ipratropium (Duoneb) 3 ml NEB Q4H PRN PRN Reason: SOB &/or Wheezing Aspirin (Ecotrin) 81 mg PO DAILY [facility] Last Admin: 09/28/19 08:45 Dose: 81 mg Atorvastatin Calcium (Lipitor) 40 mg PO 2100 [facility] Last Admin: 09/28/19 21:40 Dose: 40 mg Benzonatate (Tessalon) 100 mg PO Q4H PRN PRN Reason: Cough Bisacodyl (Dulcolax) 10 mg PO DAILYPRN PRN PRN Reason: Constipation Carvedilol (Coreg) 12.5 mg PO BID-[facility] Last Admin: 09/28/19 16:55 Dose: 12.5 mg Clopidogrel Bisulfate (Plavix) 75 mg PO DAILY [facility] Last Admin: 09/28/19 08:45 Dose: 75 mg Dextrose/Water (Dextrose 50%) 25 gm SLOW IVP PRN PRN PRN Reason: Hypoglycemia Diphenhydramine HCl (Benadryl) 25 mg PO Q6H PRN PRN Reason: Itching & Insomnia Docusate Sodium (Colace) 100 mg PO BIDPRN PRN PRN Reason: Constipation Last Admin: 09/28/19 21:47 Dose: 100 mg Epoetin Tong-epbx (Retacrit) 10,000 unit IVP MoWeFr@0900 [facility] Last Admin: 09/27/19 11:30 Dose: 10,000 unit Ergocalciferol (Drisdol) 1.25 mg PO Q7D [facility] Famotidine (Pepcid) 20 mg PO Q24HR [facility] Last Admin: 09/28/19 21:47 Dose: 20 mg Glucagon (Glucagon) 1 mg IM PRN PRN PRN Reason: Hypoglycemia Dextrose/Water (D5w) 1,000 mls @ 0 mls/hr IV .Q0M PRN PRN Reason: Hypoglycemia Insulin Glargine 15 units/ (Miscellaneous Medication) 0.15 mls @ 1 mls/hr SC BID [facility] Last Admin: 09/28/19 21:39 Dose: 0.15 mls Insulin Human Lispro (Humalog) 0 units SC .MODERATE SLIDING SC PRN PRN Reason: Moderate Correctional Scale Labetalol HCl (Normodyne) 10 mg SLOW IVP Q4H PRN PRN Reason: SBP Greater Than 180 Loperamide HCl (Imodium) 2 mg PO PRN PRN PRN Reason: Diarrhea/Loose Stools Melatonin (Melatonin) 3 mg PO HSPRN PRN PRN Reason: Insomnia Morphine Sulfate (Morphine) 2 mg SLOW IVP Q4H PRN PRN Reason: Moderate to Severe Pain (6-10) Last Admin: 09/28/19 00:05 Dose: 2 mg Nitroglycerin (Nitrostat) 0.4 mg SL Q5MIN PRN PRN Reason: Chest Pain Ondansetron HCl (Zofran Odt) 4 mg PO Q6H PRN PRN Reason: Nausea/Vomiting Ondansetron HCl (Zofran) 4 mg IVP Q6H PRN PRN Reason: Nausea/Vomiting Sodium Chloride (Flush - Normal Saline) 10 ml IVF Q12HR [facility] Last Admin: 09/28/19 21:42 Dose: 10 ml Sodium Chloride (Flush - Normal Saline) 10 ml IVF PRN PRN PRN Reason: Saline Flush Tramadol HCl (Ultram) 50 mg PO Q12H PRN PRN Reason: Moderate to Severe Pain (6-10) Last Admin: 09/27/19 20:15 Dose: 50 mg Vital Signs & Weight: Vital Signs Temp Pulse Resp BP Pulse Ox 09/29/19 08:06 100 09/29/19 07:24 98.8 F 79 18 121/57 L 100 09/29/19 03:55 99.1 F 78 16 122/57 L 97 Weight 150 lb 6.4 oz - Physical Exam HEENT: normocephaly Neck: supple neck, no JVD/HJR Cardiac: regular rate and rhythm, no murmur Lungs: clear to auscultation Neuro: grossly intact Abdomen: unremarkable Extremities: no cyanosis, other: (both hands are tender. This may be arthritic pain.) - Labs Result Diagrams: 09/27/19 03:45 09/27/19 03:45 Troponin/CKMB CK-MB (CK-2) 1.5 ng/mL (0-6.6) 09/26/19 13:39 Troponin I 1.490 ng/mL (< 0.028) H* 09/27/19 09:08 - Telemetry Sinus rhythms and dysrhythmias: sinus rhythm - Assessment/Plan Assessment/Plan: 1. Elevated trop 2/2 s/p Stent placement on 09/23/2019 2. CAD with hx of stent placement in 2017 and s/p NOE in LAD on 09/23/2019 - on Coreg, ASA, Plavix, and Statin 3. HTN - stable 4. IDDM - 5. HLD - 6. ESRD - on hemodialysis. 7. hx of Rt LELAND BUENROSTRO reviewed * Echo on 09/27/2019 with EF 45-50%, mild MR and TR * Stanle cardiac status. I will sign off.The pt will f/u with [facility] in [facility] [place]
[2019-09-29] MEDS: EPOETIN ALFA-EPBX (ESRD) 10,000 UNIT/ML VIAL IVP SCH (10:37)
[2019-09-29] MEDS: Insulin Glargine 15 UNITS in Pre-Filled Syringe 1 EACH SC SCH (12:02)
[2019-09-29] MEDS: Carvedilol 6.25 MG TAB PO SCH (12:09)
[2019-09-29] MEDS: Aspirin 81 mg Enteric Coated Tablet PO SCH (12:09)
[2019-09-29] MEDS: Clopidogrel Bisulfate 75 MG TAB PO SCH (12:09)
[2019-09-29 12:19] VITALS: TEMP 98.3
--- NOTE | 2019-09-29 14:05 | PRG ---
DATE OF SERVICE: 09/29/2019 SUBJECTIVE: A 64-year-old female being seen for end-stage renal disease. The patient denied nausea, vomiting, or chest pain. OBJECTIVE: GENERAL: The patient is awake and alert. VITAL SIGNS: Afebrile, pulse 86, breathing at 16, blood pressure 145/67. HEENT: Head normocephalic and atraumatic. Eyes intact, no ulcers. Nose intact, no ulcers. Ears intact, no ulcers. Neck: Supple. No JVD. Chest: Symmetrical and clear. Cardiovascular: Shows S1 and S2, no rub, no murmur. Gastrointestinal: Abdomen is soft, bowel sounds positive. Extremities: Show no edema or ulcers. Skin: Shows no rash or petechiae. Musculoskeletal: Shows no joint swelling or stiffness. Genitourinary: Shows no Lara or CVA tenderness. Neurologic: Motor intact. Cranial nerves intact. LABORATORY DATA: Reviewed. ASSESSMENT AND PLAN: 1. Stage 6 chronic kidney disease, stable. 2. Hypertension, stable. 3. Anemia, stable. 4. Medication based on GFR appropriate. Job ID: [id number]
[2019-09-29 14:11] VITALS: BP 124/60
--- NOTE | 2019-09-29 19:05 | DIS ---
DATE OF ADMISSION: 09/26/2019 DATE OF DISCHARGE: 09/29/2019 PRIMARY CARE PROVIDER: Dr. Yolanda Stauffer. DISCHARGE DIAGNOSES: 1. [id number] myocardial infarction type 2, secondary to stent placement. 2. End-stage renal disease, on hemodialysis. CONDITION OF PATIENT ON THE DAY OF DISCHARGE: Stable. I assessed Ms. Smith on the day of discharge. She denies any chest pain or shortness of breath. Vital signs are stable. S1 and S2 are heard, regular. Lungs are clear to auscultation bilaterally. CONSULTATIONS DURING THIS HOSPITALIZATION: 1. Nephrology, Dr. Hassan. 2. Cardiology, Dr. Mnariquez. 3. General Surgery, Dr. Bentley. HOSPITAL COURSE: Ms. Smith is a pleasant 64-year-old lady, who was admitted to [facility] on 09/26/2019, for left upper extremity and left-sided chest pain. She was seen by Nephrology Service for maintenance hemodialysis. She was also seen by Cardiology Service. Her chest pain was atypical for cardiac etiology and it was felt that her elevated troponins were secondary to recent stent placement. She was also seen by General Surgery Service. It was felt that the arm pain was not secondary to her vascular access surgery. Her pain resolved with pain medications. She is being discharged home in a stable condition. She has been advised to follow up with her primary care provider in 3 days and with her hand meat salter. POST ACUTE CARE FOLLOWUP: With primary care provider in 3 days and with her hand meat salter. DISCHARGE MEDICATIONS: 1. Aspirin 81 mg daily. 2. Atorvastatin 40 mg at bedtime. 3. Coreg 12.5 mg 2 times a day. 4. Plavix 75 mg daily. 5. Levemir insulin 30 units daily. 6. NovoLog insulin by sliding scale. DIET: Heart healthy, renal and diabetic diet. ACTIVITY: No restrictions. DISCHARGE DESTINATION: Home. TIME SPENT: Total amount of time spent coordinating this discharge: 32 minutes. Job ID: [id number]
[2019-10-03] MEDS ORDERED: Ergocalciferol 1.25 MG(50,000 UNITS) CAP PO SCH (09:00)
== END 2019-09-29 14:14 | disposition home or self-care (01) | DRG 280 ==
LOC: ERS 12:43 → OBSVTOIN 15:50 → 2NO 15:50
PROVIDERS: ADMIT Internal Medicine; ATTEND Internal Medicine
PROC: 5A1D70Z Performance of Urinary Filtration, Intermittent, Less than 6 Hours Per Day (ICD-10-PCS; principal; 2019-09-27)
DX: I97.190 Other postprocedural cardiac functional disturbances following cardiac surgery (principal); I21.A9 Other myocardial infarction type; N18.6 End stage renal disease; I12.0 Hypertensive chronic kidney disease with stage 5 chronic kidney disease or end stage renal disease; E87.1 Hypo-osmolality and hyponatremia; I97.89 Other postprocedural complications and disorders of the circulatory system, not elsewhere classified; I25.10 Atherosclerotic heart disease of native coronary artery without angina pectoris; E78.5 Hyperlipidemia, unspecified; E11.22 Type 2 diabetes mellitus with diabetic chronic kidney disease; D63.1 Anemia in chronic kidney disease; I08.1 Rheumatic disorders of both mitral and tricuspid valves; M79.621 Pain in right upper arm; E78.00 Pure hypercholesterolemia, unspecified; Y83.8 Other surgical procedures as the cause of abnormal reaction of the patient, or of later complication, without mention of misadventure at the time of the procedure; Z89.611 Acquired absence of right leg above knee; Z99.2 Dependence on renal dialysis; Z88.1 Allergy status to other antibiotic agents; Z95.5 Presence of coronary angioplasty implant and graft; I25.2 Old myocardial infarction; Z79.82 Long term (current) use of aspirin; Z79.02 Long term (current) use of antithrombotics/antiplatelets; Z79.899 Other long term (current) drug therapy
CPT/HCPCS: 36415; 36416; 70450; 71045; 80048; 80053; 82553; 83605; 83690; 83880; 84484; 85025; 87040; 90935; 93005; 93306; 93880; G0257; J1644; J1815; J2270; Q5105

== ENCOUNTER 2020-02-10 13:23 | Emergency (ER) | payer OTHER ==
[2020-02-10 14:22] LABS: #Basophils 0.1 thou/uL (0.0-0.2); #Eosinphils 0.1 thou/uL (0.0-0.7); #Lymphocytes 1.7 thou/uL (1.20-3.40); #Monocytes 0.4 thou/uL (0.11-0.59); #Neutrophils 2.9 thou/uL (1.40-6.50); %Eosinophils 1.3 % (0.0-10.0); %Lymphocytes 33.1 % (21.0-51.0); %Monocytes 8.2 % (0.0-10.0); %Neutrophils 56.5 % (42.0-75.0); Hemoglobin 10.5 g/dL (12.0-16.0); Mean Corpuscular HGB CONC 32.3 g/dL (32.0-36.0); Mean Corpuscular Hemoglobin 29.4 pg (27.0-31.0); Platelet Count 212 thou/uL (130-400); RBC Distribution Width 14.9 % (11.5-14.5); Red Blood Cell (RBC) Count 3.56 mill/uL (4.20-5.40); White Blood Cell (WBC) Count 5.1 thou/uL (4.8-10.8)
--- NOTE | 2020-02-10 14:37 | RAD ---
EXAM: Single view of the chest HISTORY: Dyspnea and shortness of breath COMPARISON: 08/31/2019 FINDINGS: Single view of the chest shows an enlarged but stable cardiomediastinal silhouette. The di alysis catheter is unchanged in position. There is no evidence of consolidation, mass, or pleural effusion. The bones are unremarkable IMPRESSION: No evidence of acute cardiopulmonary disease
[2020-02-10 14:41] LABS: ALT (SGPT) 13 U/L (8-55); AST (SGOT) 20 U/L (5-34); Albumin 3.7 g/dL (3.4-4.8); Alkaline Phosphatase 89 U/L (40-110); Anion Gap 16 mmol/L (10-20); BUN (Urea Nitrogen) 26 mg/dL (9.8-20.1); Bilirubin, Total 0.5 mg/dL (0.2-1.2); CK (CPK) 42 U/L (29-168); Calc. Creatinine Clearance 0 mL/min (70-130); Calcium 8.9 mg/dL (7.8-10.44); Carbon Dioxide 28 mmol/L (23-31); Chloride 98 mmol/L (98-107); Estimated GFR-MDRD 9; Globulin 3.2 g/dL (2.4-3.5); Glucose 154 mg/dL (80-115); Magnesium 2.2 mg/dL (1.6-2.6); Potassium 3.6 mmol/L (3.5-5.1); Protein, Total 6.9 g/dL (6.0-8.3); Sodium 138 mmol/L (136-145)
[2020-02-10 15:04] LABS: CKMB 1.7 ng/mL (0-6.6)
--- NOTE | 2020-02-10 20:17 | CON ---
DATE OF CONSULTATION: 02/10/2020 CONSULTING PHYSICIAN: ER doctor. REASON FOR CONSULTATION: End-stage renal disease evaluation and care. REASON FOR ER VISIT: Possible pleural effusion. HISTORY OF PRESENT ILLNESS: A 64-year-old female with history of end-stage renal disease, coronary artery disease. Was seen by our contract management specialist to rule out pleural effusion. He had his office diagnostic done and was thought to have pleural effusion and her EF was also dropping, so he wanted to get it checked in the ER. The patient denies any symptoms. No chest pain or palpitation. Gets dialysis on Friday, Friday, and Friday, due for dialysis tomorrow. PAST MEDICAL HISTORY: Positive for coronary artery disease, hypertension, hyperlipidemia, end-stage renal disease. PAST SURGICAL HISTORY: Right leg amputation and right arm fistula. HOME MEDICATIONS: Reviewed. ALLERGIES: CIPRO. SOCIAL HISTORY: No smoking, alcohol, or illicit drug abuse reported. FAMILY HISTORY: No history of kidney disease reported. REVIEW OF SYSTEMS: CONSTITUTIONAL: Negative for weight loss or gain, ability to conduct usual activities. SKIN: Negative for rash, itching. EYES: Negative for double vision, pain. ENT/MOUTH: Negative for nose bleeding, neck stiffness, pain, tenderness. CARDIOVASCULAR: Negative for palpitations, dyspnea on exertion, orthopnea. RESPIRATORY: Negative for shortness of breath, wheezing, cough, hemoptysis, fever or night sweats. GASTROINTESTINAL: Negative for poor appetite, abdominal pain, heartburn, nausea, vomiting, constipation, or diarrhea. GENITOURINARY: Negative for urgency, frequency, dysuria, nocturia. MUSCULOSKELETAL: Negative for pain, swelling. NEUROLOGIC/PSYCHIATRIC: Negative for anxiety, depression. ALLERGY/IMMUNOLOGIC: Negative for skin rash, bleeding tendency. PHYSICAL EXAMINATION: GENERAL: This is a well-built female, in no apparent distress. VITAL SIGNS: Reviewed. HEENT: Atraumatic and normocephalic. NECK: Supple. CV: S1 and S2. Regular rate and rhythm. RESPIRATORY: Clear. GASTROINTESTINAL: Abdomen soft. MUSCULOSKELETAL: No edema. DERMATOLOGIC: No skin rash. NEUROLOGICAL: Alert and awake. PSYCHIATRIC: Mood and affect normal. LABORATORY DATA: Hemoglobin is 10.5, potassium 3.6, BUN 26, creatinine is 4.6. ASSESSMENT AND PLAN: 1. End-stage renal disease. Continue on hemodialysis. Continue dialysis Friday, Friday, and Friday. 2. Anemia. Continue Epogen per protocol. 3. Hypertension. 4. Cardiorenal syndrome. 5. Edema, controlled. 6. Labs are stable. No acute indication for dialysis. Follow up with Cardiology. Follow to continue dialysis at the dialysis clinic. Thank you for the consult. The patient was seen in the ER. Job ID: [id number]
== END 2020-02-10 16:54 | disposition home or self-care (01) ==
LOC: ERS 13:23
DX: R06.02 Shortness of breath (principal); E11.22 Type 2 diabetes mellitus with diabetic chronic kidney disease; I12.0 Hypertensive chronic kidney disease with stage 5 chronic kidney disease or end stage renal disease; N18.6 End stage renal disease; I25.2 Old myocardial infarction; E78.5 Hyperlipidemia, unspecified; Z79.899 Other long term (current) drug therapy
CPT/HCPCS: 36415; 71045; 80053; 82550; 82553; 83605; 83735; 83880; 84484; 85025; 93005; 94760

== ENCOUNTER 2020-09-22 14:54 | Observation (INO) | payer MEDICARE ==
[~2020-09-22 14:54] MED LIST: HOLD VANCOMYCIN FOR LEVEL >20 FS SCH; Vancomycin 1 GM in Premix Bag 1 BAG IVPB SCH; Vancomycin HCl 250 MG in Sodium Chloride 0.9% 100 ML IVPB SCH; Vancomycin HCl 500 MG in Sodium Chloride 0.9% 100 ML IVPB SCH; Vancomycin HCl 750 MG in Sodium Chloride 0.9% 250 ML 250 ML IVPB SCH
[2020-09-22] MEDS ORDERED: cefTRIAXone\\ROCEPHIN 1 GM VIAL ONE (16:12)
[2020-09-22] MEDS ORDERED: Vancomycin 1 GM/200 ML BAG ONE (16:14)
[2020-09-22 16:23] LABS: #Basophils 0.1 thou/uL (0.0-0.2); #Eosinphils 0.1 thou/uL (0.0-0.7); #Lymphocytes 1.1 thou/uL (1.20-3.40); #Monocytes 0.3 thou/uL (0.11-0.59); #Neutrophils 4.3 thou/uL (1.40-6.50); %Basophils 0.9 % (0.0-1.0); %Eosinophils 1.6 % (0.0-10.0); %Lymphocytes 18.2 % (21.0-51.0); %Neutrophils 74.3 % (42.0-75.0); Hemoglobin 10.2 g/dL (12.0-16.0); Mean Corpuscular HGB CONC 32.3 g/dL (32.0-36.0); Mean Corpuscular Hemoglobin 30.8 pg (27.0-31.0); Mean Corpuscular Volume 95.4 fL (78.0-98.0); Mean Platelet Volume 9.5 fL (7.4-10.4); Platelet Count 145 thou/uL (130-400); RBC Distribution Width 15.5 % (11.5-14.5); Red Blood Cell (RBC) Count 3.31 mill/uL (4.20-5.40); White Blood Cell (WBC) Count 5.8 thou/uL (4.8-10.8)
[2020-09-22 16:30] LABS: INR-International Normal Ratio 1.2; PTT 34.3 sec (22.9-36.1); Prothrombin Time 15.3 sec (12.0-14.7)
[2020-09-22 16:49] LABS: ALT (SGPT) 14 U/L (8-55); AST (SGOT) 19 U/L (5-34); Albumin 3.6 g/dL (3.4-4.8); Alkaline Phosphatase 111 U/L (40-110); Anion Gap 18 mmol/L (10-20); BUN (Urea Nitrogen) 18 mg/dL (9.8-20.1); Bilirubin, Total 0.4 mg/dL (0.2-1.2); Calc. Creatinine Clearance 0 mL/min (70-130); Calcium 8.6 mg/dL (7.8-10.44); Carbon Dioxide 30 mmol/L (23-31); Chloride 93 mmol/L (98-107); Globulin 3.7 g/dL (2.4-3.5); Glucose 163 mg/dL (80-115); Potassium 3.4 mmol/L (3.5-5.1); Protein, Total 7.3 g/dL (5.8-8.1); Sodium 138 mmol/L (136-145)
[2020-09-22] MEDS ORDERED: Bisacodyl 5 MG TAB PO PRN (18:18)
[2020-09-22] MEDS ORDERED: HYDROcodone/Acetaminophen 5/325 mg Tablet PO PRN (18:18)
[2020-09-22] MEDS ORDERED: Ondansetron PF 4 MG/2 ML Vial IVP PRN (18:18)
[2020-09-22] MEDS ORDERED: Acetaminophen 325 MG TAB PO PRN (18:18)
[2020-09-22] MEDS ORDERED: Senokot S 8.6-50 MG TAB PO PRN (18:18)
[2020-09-22] MEDS ORDERED: Ondansetron ODT 4 MG TAB PO PRN (18:18)
[2020-09-22] MEDS ORDERED: Dextrose 5% in Water 1,000 ML IV PRN (18:24)
[2020-09-22] MEDS ORDERED: HumaLOG 300 UNITS/3 ML VIAL SC PRN ×2 (18:24)
[2020-09-22] MEDS ORDERED: Dextrose 50% Abboject 50 ML SYRINGE SLOW IVP PRN (18:24)
[2020-09-22 19:24] VITALS: BMI 25.8
[2020-09-22] MEDS ORDERED: Insulin Glargine 30 UNITS in Pre-Filled Syringe 1 EACH SC SCH (21:00)
[2020-09-22] MEDS ORDERED: Cefepime 1 GM in Sodium Chloride 0.9% 100 ML IVPB SCH (21:00)
[2020-09-22] MEDS ORDERED: Famotidine 20 MG TAB PO SCH (21:00)
[2020-09-23 02:10] LABS: SARS-CoV-2 PCR by NAA DETECTED (NotDetected)
[2020-09-23 06:31] LABS: #Basophils 0.1 thou/uL (0.0-0.2); #Eosinphils 0.1 thou/uL (0.0-0.7); #Lymphocytes 0.9 thou/uL (1.20-3.40); #Monocytes 0.5 thou/uL (0.11-0.59); #Neutrophils 3.2 thou/uL (1.40-6.50); %Basophils 1.1 % (0.0-1.0); %Eosinophils 2.5 % (0.0-10.0); %Lymphocytes 19.7 % (21.0-51.0); %Monocytes 9.6 % (0.0-10.0); %Neutrophils 67.1 % (42.0-75.0); Hemoglobin 9.5 g/dL (12.0-16.0); Mean Corpuscular HGB CONC 32.3 g/dL (32.0-36.0); Mean Corpuscular Hemoglobin 31.1 pg (27.0-31.0); Mean Corpuscular Volume 96.3 fL (78.0-98.0); Mean Platelet Volume 10.9 fL (7.4-10.4); Platelet Morphology Comment PLT clumps seen-ADEQ; RBC Distribution Width 15.8 % (11.5-14.5); Red Blood Cell (RBC) Count 3.06 mill/uL (4.20-5.40); White Blood Cell (WBC) Count 4.7 thou/uL (4.8-10.8)
[2020-09-23 06:36] LABS: Anion Gap 16 mmol/L (10-20); BUN (Urea Nitrogen) 28 mg/dL (9.8-20.1); Calc. Creatinine Clearance 16 mL/min (70-130); Calcium 8.1 mg/dL (7.8-10.44); Carbon Dioxide 29 mmol/L (23-31); Chloride 98 mmol/L (98-107); Glucose 155 mg/dL (80-115); Potassium 3.9 mmol/L (3.5-5.1); Sodium 139 mmol/L (136-145)
[2020-09-23 08:08] LABS: Vancomycin, Random 14.6 ug/mL (See Comment)
[2020-09-23] MEDS ORDERED: Enoxaparin Sodium 40 MG/0.4 ML SYRINGE SC SCH (09:00)
[2020-09-23] MEDS ORDERED: Insulin Glargine 30 UNITS in Pre-Filled Syringe 1 EACH SC SCH (09:00)
[2020-09-23] MEDS ORDERED: FLU VACC QS2020-21(65YR UP)/PF 240 MCG/0.7 ML SYRINGE IM ONE (09:00)
[2020-09-23] MEDS ORDERED: Adacel (T-DAP) 0.5 ML SYRINGE IM ONE (09:00)
[2020-09-23] MEDS: Boostrix 0.5 ML (Tdap) VIAL IM ONE ×2 (09:49→09:52)
[2020-09-23 11:57] VITALS: BP 141/78; TEMP 98.4
[2020-09-23] MEDS ORDERED: Vancomycin 1 GM in Premix Bag 1 BAG IVPB SCH (16:00)
[2020-09-23] MEDS ORDERED: Cefepime 0.5 GM in Sodium Chloride 0.9% 100 ML IVPB SCH (21:00)
[2020-09-25] MEDS ORDERED: EPOETIN ALFA-EPBX (ESRD) 10,000 UNIT/ML VIAL IVP SCH (09:00)
== END 2020-09-23 15:43 | disposition home or self-care (01) ==
LOC: ERS 14:54 → T4-A 16:53
PROVIDERS: ADMIT Internal Medicine; ATTEND Internal Medicine
DX: U07.1 COVID-19 (principal); E11.621 Type 2 diabetes mellitus with foot ulcer; L97.529 Non-pressure chronic ulcer of other part of left foot with unspecified severity; L03.116 Cellulitis of left lower limb; I12.0 Hypertensive chronic kidney disease with stage 5 chronic kidney disease or end stage renal disease; E11.22 Type 2 diabetes mellitus with diabetic chronic kidney disease; N18.6 End stage renal disease; D63.1 Anemia in chronic kidney disease; I25.10 Atherosclerotic heart disease of native coronary artery without angina pectoris; I25.2 Old myocardial infarction; E11.42 Type 2 diabetes mellitus with diabetic polyneuropathy; E78.5 Hyperlipidemia, unspecified; Z79.02 Long term (current) use of antithrombotics/antiplatelets; Z79.4 Long term (current) use of insulin; Z79.82 Long term (current) use of aspirin; Z79.899 Other long term (current) drug therapy; Z88.1 Allergy status to other antibiotic agents; Z99.2 Dependence on renal dialysis; Z95.810 Presence of automatic (implantable) cardiac defibrillator; Z89.511 Acquired absence of right leg below knee; Z95.5 Presence of coronary angioplasty implant and graft
CPT/HCPCS: 73630; 80048; 80053; 80202; 82962 ×2; 83605; 85025 ×2; 85610; 85652; 85730; 86140; 87040; 90715; 96365; 96367; 97139 ×2; 99284; U0003; U0005; 36415; 36416; 87635; 96366; 96372; G0378; J0692; J0696; J1650; J1815; J3370; J3490

== ENCOUNTER 2020-11-05 18:30 | Inpatient (IN) | payer MEDICARE ==
[2020-11-05] MEDS ORDERED: Calcium Chloride 1 GM/10 ML Abboject SYRINGE ONE ×2 (19:03→20:48)
[2020-11-05] MEDS ORDERED: Piperacillin/Tazobactam 3.375 GM VIAL ONE (19:03)
[2020-11-05] MEDS ORDERED: Ondansetron PF 4 MG/2 ML Vial ONE (19:18)
[2020-11-05] MEDS ORDERED: Promethazine HCl 25 MG/ML VIAL ONE (19:19)
[2020-11-05 19:20] LABS: #Basophils 0.1 thou/uL (0.0-0.2); #Lymphocytes 1.6 thou/uL (1.20-3.40); #Monocytes 0.4 thou/uL (0.11-0.59); #Neutrophils 6.2 thou/uL (1.40-6.50); %Basophils 1.1 % (0.0-1.0); %Eosinophils 0.4 % (0.0-10.0); %Lymphocytes 19.4 % (21.0-51.0); %Monocytes 5.3 % (0.0-10.0); %Neutrophils 73.9 % (42.0-75.0); Hemoglobin 12.7 g/dL (12.0-16.0); Mean Corpuscular HGB CONC 32.3 g/dL (32.0-36.0); Mean Corpuscular Hemoglobin 30.7 pg (27.0-31.0); Mean Platelet Volume 9.5 fL (7.4-10.4); Platelet Count 182 thou/uL (130-400); RBC Distribution Width 15.6 % (11.5-14.5); Red Blood Cell (RBC) Count 4.14 mill/uL (4.20-5.40); White Blood Cell (WBC) Count 8.3 thou/uL (4.8-10.8)
[2020-11-05 19:40] LABS: ALT (SGPT) 16 U/L (8-55); AST (SGOT) 22 U/L (5-34); Albumin 3.9 g/dL (3.4-4.8); Alkaline Phosphatase 102 U/L (40-110); Anion Gap 27 mmol/L (10-20); BUN (Urea Nitrogen) 73 mg/dL (9.8-20.1); Bilirubin, Total 0.8 mg/dL (0.2-1.2); Calc. Creatinine Clearance 0 mL/min (70-130); Calcium 9.2 mg/dL (7.8-10.44); Carbon Dioxide 17 mmol/L (23-31); Chloride 94 mmol/L (98-107); Globulin 3.7 g/dL (2.4-3.5); Glucose 241 mg/dL (80-115); Magnesium 2.9 mg/dL (1.6-2.6); Protein, Total 7.6 g/dL (5.8-8.1); Sodium 131 mmol/L (136-145)
[2020-11-05 20:00] LABS: Potassium 6.7 mmol/L (3.5-5.1)
[2020-11-05] MEDS ORDERED: Dextrose 50% Abboject 50 ML SYRINGE ONE (20:19)
[2020-11-05] MEDS ORDERED: Insulin Regular 300 UNITS/3 ML VIAL ONE (20:19)
[2020-11-05] MEDS ORDERED: Sodium Bicarb 50 MEQ/50 ML Abboject 8.4% SYRINGE ONE (20:19)
[2020-11-05] MEDS ORDERED: Albuterol Sulfate 2.5 mg/3 ml Neb ONE (20:54)
[2020-11-05] MEDS ORDERED: Vancomycin 1 GM/200 ML BAG ONE (21:16)
[2020-11-05] MEDS ORDERED: Ondansetron ODT 4 MG TAB PO PRN (22:39)
[2020-11-05] MEDS ORDERED: Ondansetron PF 4 MG/2 ML Vial IVP PRN (22:39)
[2020-11-05] MEDS ORDERED: Acetaminophen 325 MG TAB PO PRN (22:39)
[2020-11-05] MEDS: traMADol HCl 50 MG TAB PO PRN (22:43)
[2020-11-05 23:39] LABS: Lactic Acid 1.3 mmol/L (0.5-2.2)
[2020-11-06 00:49] LABS: Hep B Surf Ag Non-Reactive S/CO (NonReactive)
[2020-11-06 03:06] VITALS: BMI 23.8
[2020-11-06 04:17] LABS: #Basophils 0.1 thou/uL (0.0-0.2); #Lymphocytes 1.3 thou/uL (1.20-3.40); #Monocytes 0.6 thou/uL (0.11-0.59); #Neutrophils 4.9 thou/uL (1.40-6.50); %Basophils 0.9 % (0.0-1.0); %Eosinophils 0.4 % (0.0-10.0); %Lymphocytes 18.3 % (21.0-51.0); %Monocytes 8.6 % (0.0-10.0); %Neutrophils 71.7 % (42.0-75.0); Hemoglobin 11.3 g/dL (12.0-16.0); Mean Corpuscular HGB CONC 33.3 g/dL (32.0-36.0); Mean Corpuscular Hemoglobin 31.4 pg (27.0-31.0); Mean Corpuscular Volume 94.3 fL (78.0-98.0); Mean Platelet Volume 9.8 fL (7.4-10.4); Platelet Count 135 thou/uL (130-400); RBC Distribution Width 15.5 % (11.5-14.5); White Blood Cell (WBC) Count 6.8 thou/uL (4.8-10.8)
[2020-11-06 04:38] LABS: Anion Gap 19 mmol/L (10-20); BUN (Urea Nitrogen) 30 mg/dL (9.8-20.1); Calc. Creatinine Clearance 13 mL/min (70-130); Calcium 9.2 mg/dL (7.8-10.44); Carbon Dioxide 24 mmol/L (23-31); Chloride 97 mmol/L (98-107); Glucose 136 mg/dL (80-115); Sodium 136 mmol/L (136-145)
[2020-11-06] MEDS ORDERED: Piperacillin/Tazobactam 2.25 GM in Sodium Chloride 0.9% 100 ML IVPB SCH (08:00)
[2020-11-06 08:43] LABS: SARS-CoV-2 PCR by NAA Not Detected (NotDetected)
[2020-11-06] MEDS: traMADol HCl 50 MG TAB PO PRN (08:55)
[2020-11-06] MEDS ORDERED: traMADol HCl 50 MG TAB PO PRN (10:39)
[2020-11-06] MEDS ORDERED: Piperacillin/Tazobactam 1.125 GM in Sodium Chloride 0.9% 100 ML IVPB SCH (13:00)
[2020-11-06 18:28] VITALS: BP 124/60; TEMP 97.2
== END 2020-11-06 19:13 | disposition home or self-care (01) | DRG 640 ==
LOC: ERS 18:30 → 2NO 20:55
PROVIDERS: ADMIT Internal Medicine; ATTEND Hospitalist
PROC: 5A1D70Z Performance of Urinary Filtration, Intermittent, Less than 6 Hours Per Day (ICD-10-PCS; principal; 2020-11-05)
DX: E87.70 Fluid overload, unspecified (principal); N18.6 End stage renal disease; M86.8X7 Other osteomyelitis, ankle and foot; Z20.822 Contact with and (suspected) exposure to COVID-19; L03.116 Cellulitis of left lower limb; I12.0 Hypertensive chronic kidney disease with stage 5 chronic kidney disease or end stage renal disease; E87.2 Acidosis; E87.1 Hypo-osmolality and hyponatremia; E11.22 Type 2 diabetes mellitus with diabetic chronic kidney disease; E11.51 Type 2 diabetes mellitus with diabetic peripheral angiopathy without gangrene; E11.69 Type 2 diabetes mellitus with other specified complication; E78.5 Hyperlipidemia, unspecified; E78.00 Pure hypercholesterolemia, unspecified; I25.10 Atherosclerotic heart disease of native coronary artery without angina pectoris; E88.09 Other disorders of plasma-protein metabolism, not elsewhere classified; D63.1 Anemia in chronic kidney disease; E11.621 Type 2 diabetes mellitus with foot ulcer; L97.529 Non-pressure chronic ulcer of other part of left foot with unspecified severity; Z99.2 Dependence on renal dialysis; I25.2 Old myocardial infarction; Z95.5 Presence of coronary angioplasty implant and graft; Z95.810 Presence of automatic (implantable) cardiac defibrillator; Z89.511 Acquired absence of right leg below knee; Z88.1 Allergy status to other antibiotic agents; Z88.8 Allergy status to other drugs, medicaments and biological substances; Z79.82 Long term (current) use of aspirin; Z79.4 Long term (current) use of insulin; Z79.899 Other long term (current) drug therapy
CPT/HCPCS: 36415; 36416; 71045; 80048; 80053; 83605; 83735; 85025; 87040; 87340; 87635; 90935; 93005; 94640; 94760; 96365; 96375; 96376; G0257; J1815; J2405; J2543; J2550; J3370; J3490; J7611; U0003; U0005

== ENCOUNTER 2021-07-16 04:13 | Emergency (ER) | payer MEDICARE ==
[2021-07-16 05:44] LABS: #Eosinphils 0.2 thou/uL (0.0-0.7); #Lymphocytes 0.9 thou/uL (1.20-3.40); #Monocytes 0.5 thou/uL (0.11-0.59); #Neutrophils 6.3 thou/uL (1.40-6.50); %Basophils 0.5 % (0.0-1.0); %Lymphocytes 11.1 % (21.0-51.0); %Monocytes 5.7 % (0.0-10.0); %Neutrophils 80.7 % (42.0-75.0); Hemoglobin 10.8 g/dL (12.0-16.0); Mean Corpuscular HGB CONC 34.1 g/dL (32.0-36.0); Mean Corpuscular Hemoglobin 33.6 pg (27.0-31.0); Mean Corpuscular Volume 98.4 fL (78.0-98.0); Mean Platelet Volume 7.2 fL (7.4-10.4); Platelet Count 177 thou/uL (130-400); RBC Distribution Width 13.3 % (11.5-14.5); Red Blood Cell (RBC) Count 3.22 mill/uL (4.20-5.40); White Blood Cell (WBC) Count 7.8 thou/uL (4.8-10.8)
[2021-07-16 06:06] LABS: ALT (SGPT) 13 U/L (8-55); AST (SGOT) 19 U/L (5-34); Albumin 3.7 g/dL (3.4-4.8); Alkaline Phosphatase 74 U/L (40-110); Anion Gap 18 mmol/L (10-20); BUN (Urea Nitrogen) 57 mg/dL (9.8-20.1); Bilirubin, Total 0.5 mg/dL (0.2-1.2); Calc. Creatinine Clearance 0 mL/min (70-130); Calcium 8.8 mg/dL (7.8-10.44); Carbon Dioxide 28 mmol/L (23-31); Chloride 94 mmol/L (98-107); Globulin 3.1 g/dL (2.4-3.5); Glucose 116 mg/dL (80-115); Lipase 10 U/L (8-78); Potassium 4.6 mmol/L (3.5-5.1); Protein, Total 6.8 g/dL (5.8-8.1); Sodium 135 mmol/L (136-145)
== END 2021-07-16 08:45 | disposition home or self-care (01) ==
LOC: ERS 04:13
DX: K59.00 Constipation, unspecified (principal); K86.89 Other specified diseases of pancreas; I12.0 Hypertensive chronic kidney disease with stage 5 chronic kidney disease or end stage renal disease; N18.6 End stage renal disease; I25.2 Old myocardial infarction; E11.9 Type 2 diabetes mellitus without complications; E78.5 Hyperlipidemia, unspecified; E78.00 Pure hypercholesterolemia, unspecified
CPT/HCPCS: 36415; 74176; 80053; 83690; 85025